=== PATIENT | female | born 1955 | race Caucasian/White ===

== ENCOUNTER 2020-05-07 14:06 | Outpatient (CLI) | payer SELFPAY ==
--- NOTE | 2020-05-07 14:35 | XR_ITS ---
WS: [id number] Right elbow, 2 views, 05/07/2020 Clinical Data: D17.21 - Benign lipomatous neoplasm of skin and subcutaneous tissue of right arm Comparison: None. Findings: No fractures or dislocations are seen. The radial head is normal. The soft tissues are unremarkable. A definite lipoma is not identified. Usually lipomas will have a lower density compared with the subc utaneous tissue. XR/XR elbow RT 2V [id number] Impression: Negative right elbow.
== END 2020-05-07 14:07 | disposition home or self-care (01) ==
LOC: RADWPI 14:10
PROVIDERS: PCP Family Medicine; Visit Provider Surgery
DX: D17.21 Benign lipomatous neoplasm of skin and subcutaneous tissue of right arm (principal)
CPT/HCPCS: 73070

== ENCOUNTER 2020-05-23 01:41 | Emergency (ER) | payer SELFPAY ==
[2020-05-23 01:45] VITALS: BP 127/73; PULSE 71; RESP 17; TEMP 36.7; O2SAT 93; BMI 31.6
--- NOTE | 2020-05-23 01:51 | XRR_ITS ---
PROCEDURE INFORMATION: Exam: XR Chest, 2 Views Exam date and time: 05/23/2020 1:58 AM Age: 65 years old Clinical indication: Chest pain; Patient HX: Fall four days ago. C/O continued left chest and rib pain. ; Additional info: Fall/injury TECHNIQUE: Imaging protocol: XR of the chest Views: 2 views. COMPARISON: CR Chest 1 [place] [id number] 04/09/2018 11:40 AM FINDINGS: Lungs: Unremarkable. No consolidation. Pleural space: Unremarkable. No pleural effusion. No pneumothorax. Heart/Mediastinum: Unremarkable. No cardiomegaly. Bones/joints: Degenerative changes are seen in the left shoulder. XR/XR chest 2V* [id number] IMPRESSION: No acute findings.
--- NOTE | 2020-05-23 02:01 | XRR_ITS ---
PROCEDURE INFORMATION: Exam: XR Left Ribs Exam date and time: 05/23/2020 2:05 AM Age: 65 years old Clinical indication: Chest wall pain; Patient HX: Fall four days ago. C/O continued left chest and rib pain. TECHNIQUE: Imaging protocol: XR Left ribs. Views: 2 views. COMPARISON: CR Ribs LEFT w PA Chest [id number] 04/03/2018 5:28 PM FINDINGS: Bones/joints: No fracture is seen. Dextroscoliosis of the thoracic spine is present. Soft tissues: Normal. XR/XR ribs LT 2V* [id number] IMPRESSION: No acute findings.
[2020-05-23 02:04] VITALS: BP 112/63; PULSE 68; RESP 18; O2SAT 112
--- NOTE | 2020-05-23 02:04 | ED_ITS ---
HPI - Chest Pain General: Chief Complaint: Chest Pain Stated Complaint: fell on Sun. lingering chest pain from fall Time Seen by Provider: 05/23/20 02:01 History of Present Illness: HPI narrative: Patient states she fell 4 days ago. Sustained a bruise to her left breast and had some pain. But she said that today she is needs refill hard and coughed and felt a tearing across her chest now she has pain left side of her chest with deep inspiration and palpation peer MD complaint: chest pain Onset (ago): hour(s) Timing of current episode: constant Prior episodes: No Context: history of DVT/PE Associated symptoms: Deny abdominal pain, dyspnea, fever(s), nausea or vomiting Review of Systems Const: Denies: fever(s), chills or body aches Eyes: Denies: change in vision or blurry vision ENMT: Denies: throat pain or nasal congestion Card: Reports: chest pain (Left upper chest pain with deep breath and after a cough today she said she); Denies: dyspnea on exertion Resp: Denies: dyspnea, productive cough or non-productive cough GI: Denies: abdominal pain, nausea or vomiting Musc: Denies: extremity pain Skin/Breast: Reports: other (Bruise to the left breast sustained from a fall the other day); Denies: rash Neuro: Denies: headache(s) Psych: Denies: anxiety or depression Filiberto/Lymph: Denies: easy bruising PFSH ED PFSH: Medical History History of MRSA infection Surgical History H/O: hysterectomy History of appendectomy History of right hip replacement Family History Other CAD (coronary artery disease) Diabetes Social History Smoking and tobacco status: current every day smoker cigarettes Packs smoked per day: 1 Alcohol intake: never Physical Exam Const: COMMON NORMALS: no acute distress, average body habitus and patient oriented x3 HENMT: COMMON NORMALS: normocephalic HEAD & SCALP: normal to inspection and normocephalic FACE & SINUS: normal facial exam Eye: COMMON NORMALS: conjunctivae normal GENERAL EYE: appearance normal, both eyes and all related structures CONJUNCTIVA: Yes conjunctivae normal Neck/C-Spine: COMMON NORMALS: no JVD Chest: CHEST: Yes localized rib tenderness with anteroposterior compression (Left side left breast tail medial aspect shows deep bruising) Location: 4th rib and 5th rib Resp: COMMON NORMALS: normal respiratory effort and clear to auscultation bilaterally AUSCULTATION: clear to auscultation bilaterally Cardio: COMMON NORMALS: no JVD, regular rate and regular rhythm RATE: regular rate RHYTHM: regular rhythm GI: COMMON NORMALS: Normal to inspection, nondistended, normoactive bowel sounds present Extremity: COMMON NORMALS: normal to inspection and full ROM Neuro: COMMON NORMALS: patient oriented x3 Course Vital Signs: Vital signs: Vital Signs Temperature 98.0 F 05/23/20 01:45 Pulse Rate 68 05/23/20 02:04 Respiratory Rate 18 05/23/20 02:04 Blood Pressure 112/63 05/23/20 02:04 Pulse Oximetry 112 H 05/23/20 02:04 MDM - Chest Pain MDM Narrative: Medical decision making narrative: Discussed case with Dr. Chandra. Patient follow-up with chest pain does not get better follow-up Dr. Abernathy of follow-up here. Discharge Plan Discharge Patient Disposition: Home Clinical Impression: Rib pain on left side Condition: Stable Prescriptions: New hydrocodone-acetaminophen 5-325 mg tablet 1 tab PO TID PRN (Reason: pain) Qty: 10 RF: 0 No Action albuterol sulfate [ProAir HFA] 90 mcg/actuation HFA aerosol inhaler 2 puff inhalation QID PRN (Reason: shortness of breath or wheezing) Qty: 8.5 RF: 0 Discharge Orders: Discharge ED (Routine); Ordered 05/23/20 Ordered By: Lencho Ellis Referrals: Karen Abernathy DO [Primary Care Provider] - Discharge Diet: Usual diet Discharge Activity: Increase activity as tolerated Patient Instructions: Contusion in Adults (ED) Activity Restrictions/Additional Instructions: Follow-up with medical provider as directed. Take medications as prescribed. Return to the ER or your medical provider if condition worsens. Please read and understand discharge instructions. If any questions ask please. Can apply ice to the area Coding Level of Care Code ED Building Manager for g Fwd Exam Comprehensive
[2020-05-23] MEDS: HYDROcodone-acetaminophen 7.5-325 mg Tablet 1 TAB PO (03:42)
[2020-05-23 03:45] VITALS: PULSE 62; O2SAT 90
== END 2020-05-23 03:50 | disposition home or self-care (01) ==
PROVIDERS: Emergency Provider Nurse Practitioner Family; PCP Family Medicine
DX: R07.81 Pleurodynia (principal); F17.210 Nicotine dependence, cigarettes, uncomplicated
CPT/HCPCS: 12345; 71046; 71100; 99282; 99283

== ENCOUNTER → 2020-07-26 17:31 | Outpatient (BNVA) | payer SELFPAY | PROVIDERS: PCP Family Medicine; Visit Provider Nurse Practitioner Family | DX: S82.831A Other fracture of upper and lower end of right fibula, initial encounter for closed fracture (principal); W00.0XXA Fall on same level due to ice and snow, initial encounter; Z68.31 Body mass index [BMI] 31.0-31.9, adult | CPT/HCPCS: 73562 ==

== ENCOUNTER → 2020-07-28 11:59 | Outpatient (BNVA) | payer SELFPAY | PROVIDERS: PCP Family Medicine; Visit Provider Orthopaedic Surgery | DX: M25.571 Pain in right ankle and joints of right foot (principal) | CPT/HCPCS: 73610 ==

== ENCOUNTER 2020-07-28 14:38 | Outpatient (CLI) | payer SELFPAY | END 2020-07-28 14:39 | disposition home or self-care (01) | LOC: SPT 14:38 | PROVIDERS: PCP Family Medicine; Visit Provider Orthopaedic Surgery | DX: Z46.89 Encounter for fitting and adjustment of other specified devices (principal); S93.401D Sprain of unspecified ligament of right ankle, subsequent encounter; X58.XXXD Exposure to other specified factors, subsequent encounter | CPT/HCPCS: L4361 ==

== ENCOUNTER → 2020-08-18 12:59 | Outpatient (BNVA) | payer SELFPAY | PROVIDERS: PCP Family Medicine; Visit Provider Orthopaedic Surgery | DX: S82.401A Unspecified fracture of shaft of right fibula, initial encounter for closed fracture (principal); M25.571 Pain in right ankle and joints of right foot; X58.XXXA Exposure to other specified factors, initial encounter | CPT/HCPCS: 73590 ==

== ENCOUNTER → 2020-09-09 13:02 | Outpatient (BNVA) | payer SELFPAY | PROVIDERS: PCP Family Medicine; Visit Provider Orthopaedic Surgery | DX: S82.401D Unspecified fracture of shaft of right fibula, subsequent encounter for closed fracture with routine healing; W00.0XXD Fall on same level due to ice and snow, subsequent encounter; M25.571 Pain in right ankle and joints of right foot; Z48.89 Encounter for other specified surgical aftercare | CPT/HCPCS: 73590 ==

== ENCOUNTER → 2021-09-30 12:05 | Outpatient (BNVA) | payer MEDICARE, SELFPAY | PROVIDERS: PCP Family Medicine; Visit Provider Family Medicine | DX: R00.2 Palpitations (principal); Z13.6 Encounter for screening for cardiovascular disorders | CPT/HCPCS: 80053; 80061; 84443; 85025 ==

== ENCOUNTER → 2021-10-25 11:09 | Outpatient (BNVA) | payer MEDICARE, SELFPAY | PROVIDERS: PCP Family Medicine; Visit Provider Internal Medicine Cardiovascular Disease | DX: R00.2 Palpitations (principal); I49.1 Atrial premature depolarization | CPT/HCPCS: 93242 ==

== ENCOUNTER 2021-11-12 13:14 | Outpatient (CLI) | payer MEDICARE, SELFPAY ==
--- NOTE | 2021-11-12 13:43 | MM_ITS ---
WS: [id number] BILATERAL 3D TOMOSYNTHESIS DIGITAL SCREENING MAMMOGRAPHY WITH CAD CLINICAL INFORMATION: screening mammogram HISTORY: Screening mammogram. No current complaints. COMPARISON: Outside studies and March 28, 2013 TECHNIQUE: Bilateral CC and MLO views. FINDINGS: Scattered fibroglandular densities bilaterally. No suspicious focal mass, asymmetry, calcifications, or architectural distortion. No evidence of malignancy. MM/[place] [id number] IMPRESSION: BI-RADS: 1-Negative FOLLOW UP: 1 Year Follow-up Recommend return to annual screening mammography.
== END 2021-11-12 13:15 | disposition home or self-care (01) ==
LOC: RAD 13:16
PROVIDERS: PCP Family Medicine; Visit Provider Family Medicine
DX: Z12.31 Encounter for screening mammogram for malignant neoplasm of breast (principal)
CPT/HCPCS: 77063; 77067

== ENCOUNTER 2021-12-29 13:54 | Outpatient (CLI) | payer MEDICARE, SELFPAY ==
--- NOTE | 2021-12-29 14:10 | XR_ITS ---
WS: [id number] DEXA (DUAL ENERGY X-RAY ABSORPTIOMETRY) Bone mineral density was performed using a [employer] machine. HISTORY: post-menopausal COMPARISON: None available. Lumbar spine BMD (L1-L4): 1.002 g/cm2 T score: -1.5 Z score: -0.7 Total hip BMD: Left: 0.847 (g/cm2). T score: -1.3 Z score: -0.6 Left forearm BMD: 0.850 g/cm2. T score: -0.3 Z score: 1.1 10 year probability of a major osteoporotic fracture is 14.8%. Osteopenia in the lumbar spine and LEFT hip. Normal bone mineral density LEFT forearm. XR/XR DEXA axial skeleton* [id number] IMPRESSION: OSTEOPENIA based upon the WHO classification for females.
== END 2021-12-29 13:55 | disposition home or self-care (01) ==
LOC: RAD 13:58
PROVIDERS: PCP Family Medicine; Visit Provider Family Medicine
DX: Z78.0 Asymptomatic menopausal state (principal); M85.80 Other specified disorders of bone density and structure, unspecified site
CPT/HCPCS: 77080

== ENCOUNTER → 2022-03-14 13:23 | Outpatient (BNVA) | payer MEDICARE, SELFPAY | PROVIDERS: PCP Family Medicine; Visit Provider Internal Medicine Cardiovascular Disease | DX: R00.2 Palpitations (principal); I49.1 Atrial premature depolarization; F17.219 Nicotine dependence, cigarettes, with unspecified nicotine-induced disorders | CPT/HCPCS: 99203 ==

== ENCOUNTER → 2022-04-27 10:55 | Outpatient (BNVA) | payer MEDICARE, SELFPAY | PROVIDERS: PCP Family Medicine; Visit Provider Nurse Practitioner Family | DX: M17.0 Bilateral primary osteoarthritis of knee (principal) | CPT/HCPCS: 73560; 73565; 99204 ==

== ENCOUNTER 2022-05-05 14:26 | Outpatient (RCR) | payer MEDICARE, SELFPAY | END 2022-06-04 23:59 | disposition home or self-care (01) | LOC: SPT 14:26 | PROVIDERS: PCP Family Medicine; Visit Provider Nurse Practitioner Family | DX: M25.561 Pain in right knee (principal) | CPT/HCPCS: 97161 ==

== ENCOUNTER → 2022-12-13 14:22 | Outpatient (BNVA) | payer MEDICARE, SELFPAY | PROVIDERS: PCP Family Medicine; Visit Provider Internal Medicine Cardiovascular Disease | DX: R00.2 Palpitations (principal); I49.1 Atrial premature depolarization; F17.219 Nicotine dependence, cigarettes, with unspecified nicotine-induced disorders; Z79.82 Long term (current) use of aspirin | CPT/HCPCS: 99213 ==

== ENCOUNTER → 2023-02-23 14:05 | Outpatient (BNVA) | payer MEDICARE, SELFPAY | PROVIDERS: PCP Family Medicine; Visit Provider Family Medicine | DX: Z13.6 Encounter for screening for cardiovascular disorders (principal); R00.2 Palpitations; Z11.59 Encounter for screening for other viral diseases; J44.9 Chronic obstructive pulmonary disease, unspecified; Z00.00 Encounter for general adult medical examination without abnormal findings; F17.219 Nicotine dependence, cigarettes, with unspecified nicotine-induced disorders; Z12.31 Encounter for screening mammogram for malignant neoplasm of breast; Z12.11 Encounter for screening for malignant neoplasm of colon; J43.1 Panlobular emphysema | CPT/HCPCS: 80053; 80061; 84443; 85025; 86803 ==

== ENCOUNTER 2023-03-10 14:21 | Outpatient (CLI) | payer MEDICARE, SELFPAY ==
--- NOTE | 2023-03-10 14:41 | MM_ITS ---
WS: [id number] BILATERAL 3D TOMOSYNTHESIS DIGITAL SCREENING MAMMOGRAPHY WITH CAD CLINICAL INFORMATION: screening HISTORY: Screening mammogram. No current complaints. COMPARISON: 2021 TECHNIQUE: Bilateral CC and MLO views. FINDINGS: Scattered fibroglandular densities bilaterally. No suspicious focal mass, asymmetry, calcifications, or architectural distortion. No evidence of malignancy. Incidental punctate calcifications LEFT breas t IMPRESSION: MM/[place] [id number] BI-RADS: 2-Benign FOLLOW UP: 1 Year Follow-up Recommend return to annual screening mammography.
== END 2023-03-10 14:22 | disposition home or self-care (01) ==
LOC: RAD 14:22
PROVIDERS: PCP Family Medicine; Visit Provider Family Medicine
DX: Z12.31 Encounter for screening mammogram for malignant neoplasm of breast (principal)
CPT/HCPCS: 77063; 77067

== ENCOUNTER 2023-05-05 16:32 | Observation (INO) | payer MEDICARE, SELFPAY ==
[2023-05-05 16:36] VITALS: BP 174/75; PULSE 75; RESP 20; TEMP 36.9; O2SAT 81; BMI 33.3
[2023-05-05 16:44] VITALS: O2SAT 91
--- NOTE | 2023-05-05 16:55 | XRR_ITS ---
PROCEDURE INFORMATION: Exam: XR Chest Exam date and time: 05/05/2023 6:38 PM Age: 68 years old Clinical indication: Dyspnea; Patient HX: Hypoxia; Copd; SOB; Smoker x 50yr-recently quit TECHNIQUE: Imaging protocol: Radiologic exam of the chest. Views: 1 view. COMPARISON: CR XR chest 2V* [id number] 05/23/2020 2:31 AM FINDINGS: Lungs: Interval development of patchy atelectasis versus pneumonia in the left lingula and right and left lower lobes. Pleural spaces: No pleural effusion. No pneumothorax. Heart/Mediastinum: Stable mild enlargement of the cardiac silhouette. Mediastinal contours are unremarkable. Vasculature: Stable vascular calcifications in the aorta. Bones/joints: Unremarkable for age. XR/XR chest 1V portable [id number] IMPRESSION: 1. Interval development of patchy atelectasis versus pneumonia in the left lingula and right and left lower lobes. Recommend followup chest imaging to insure resolution of these findings. 2. Incidental/nonacute findings are listed in the report.
[2023-05-05 17:43] LABS: Basophils # 0.1 10^3/uL (0.0-0.1); Eosinophils # 0.4 10^3/uL (0.0-0.8); Eosinophils % 5.2 %; Hematocrit 55.5 % (36-47); Lymphocytes # 2.1 10^3/uL (0.8-4.8); Lymphocytes % 25.8 %; Mean Corpuscular HGB Conc 32.6 g/dL (30-55); Mean Corpuscular Hemoglobin 34.3 pg (27-33); Mean Corpuscular Volume 105.1 fl (85-98); Mean Platelet Volume 9.7 fL (7.4-10.4); Monocytes # 0.8 10^3/uL (0.2-0.9); Monocytes % 9.3 %; Neutrophils # 4.72 10^3/uL (1.8-7.7); Neutrophils % 58.3 %; Nucleated Red Blood Cells % 0 %; Platelet Count 159 10^3/cmm (157-399); Red Blood Count 5.28 10^6/uL (3.85-5.65); Red Cell Distribution Width 14.8 % (12.1-15.1); White Blood Count 8.09 10^3/uL (3.29-11.43)
[2023-05-05 18:10] LABS: Alanine Aminotransferase 18 U/L (0-33); Albumin Level 3.9 g/dL (3.5-5.2); Alkaline Phosphatase 82 U/L (35-105); Anion Gap 13.6 (5-19); Aspartate Amino Transferase 20 U/L (0-32); Blood Urea Nitrogen 17 mg/dL (8-23); Calcium 9.3 mg/dL (8.5-10.5); Carbon Dioxide 32 mmol/L (22-29); Chloride 99 mmol/L (98-107); Glomerular Filtration Rate 55.3 mL/min (90-130); Glucose 106 mg/dL (65-115); Magnesium 2.1 mg/dL (1.7-2.3); Osmolality Calculated 292 mOsm/kg (285-295); Potassium 4.6 mmol/L (3.5-5.1); Sodium 140 mmol/L (136-145); Total Bilirubin 0.3 mg/dL (0.15-1.2); Total Protein 6.9 g/dL (6.6-8.7)
--- NOTE | 2023-05-05 18:51 | ED_ITS ---
Documented by User: MIGUEL Kee 05/06/23 01:25 HPI - Altered Mental Status 2 General: Chief Complaint: Altered Mental Status Stated Complaint: headache, weakness Time Seen by Provider: 05/05/23 18:40 History of Present Illness: Patient is a 68-year-old female with a past medical history significant for COPD and Intermittent PACs who presents to the emergency department with a chief complaint of shortness of breath, headaches, and difficulties concentrating. Patient reports that her symptoms started approximately 4 days ago and has continued to progress since onset. Patient states that she has also had intermittent palpitations, however, the patient does have a known history of intermittent PACs. Denies chest pain at this time. Admits to a nonproductive cough and associated nasal congestion with clear rhinorrhea. Patient states that she was recently placed on Spiriva approximately 23 days ago and is unsure if this is related to her symptoms or not. Patient states that she has had a headache, however, when she was placed on oxygen in the emergency department her headache had resolved. She currently denies a headache at this time. Admits to intermittent lightheadedness and dizziness. She denies fevers, abdominal pain, constipation, diarrhea, dysuria, hematuria, numbness, tingling, visual disturbances, or any other associated symptoms. Admits to smoking approximately 1 pack of cigarettes a day. She denies drinking or other recreational drug use. No other complaints at this time. Review of Systems 2 General: Reports: 10 or more systems reviewed and unremarkable except in HPI and below Const: Reports: fatigue; Denies: fever(s), chills or change in appetite Eyes: Denies: change in vision or blurry vision ENMT: Reports: hoarseness, nasal discharge and nasal congestion; Denies: throat pain, ear or mastoid pain or ear discharge Card: Reports: palpitations and lightheadedness; Denies: chest pain, syncope or pre-syncope Resp: Reports: dyspnea, non-productive cough and wheezing; Denies: productive cough GI: Denies: abdominal pain, nausea, vomiting, diarrhea or constipation : Denies: difficulty voiding, dysuria, urinary frequency or hematuria Musc: Denies: neck pain or back pain Skin/Breast: Denies: rash Neuro: Reports: headache(s), dizziness and confusion (Admits to difficulties concentrate) [facility] ED 2 PFSH: Medical History Salivary gland disturbance Surgery Scalp avulsion History of pulmonary embolism History of MRSA infection Surgical History History of right hip replacement H/O: hysterectomy History of appendectomy Family History Other CAD (coronary artery disease) Diabetes Social History Smoking and tobacco/nicotine status: current every day tobacco/nicotine user cigarettes Packs smoked per day: 1 [ Other cigarette details: <3 packs per weeks] Alcohol intake: never Substance/Drug Use: never Physical Exam 2 Const: COMMON NORMALS: no acute distress, patient oriented x3 and alert O THER: Patient is requiring 4 L of nasal cannula oxygen to stay above 90%. HENMT: COMMON NORMALS: normocephalic, atraumatic, moist oral mucous membranes and oropharynx normal HEAD & SCALP: normocephalic and atraumatic Eye: COMMON NORMALS: Equal, round and reactive pupils present, EOMs intact bilaterally, conjunctivae normal and no scleral icterus CONJUNCTIVA: Yes conjunctivae normal PUPIL: Yes Equal, round and reactive pupils present Neck/C-Spine: COMMON NORMALS: full ROM, no lymphadenopathy, supple, no meningeal signs and no JVD Chest: COMMONS NORMALS: normal inspection of the chest Resp: OTHER: Inspiratory and expiratory wheezes heard in the bilateral upper and lower lung thompson. Cardio: COMMON NORMALS: no JVD, regular rate, regular rhythm, No gallops present (Cardio), No clicks present (Cardio), No murmurs present (Cardio) and No rub (Cardio) RATE: regular rate RHYTHM: regular rhythm OTHER: Mild 1+ pitting edema bilaterally. GI: COMMON NORMALS: Normal to inspection, nondistended, normoactive bowel sounds present, Soft to palpation and non-tender PALPATION: Yes Soft to palpation Neuro: COMMON NORMALS: patient oriented x3 SENSORIUM/ORIENTATION: Yes alert MENINGEAL SIGNS: Yes no meningeal signs OTHER: Patient is alert and oriented x 4. No focal neurological deficits noted on examination. Sensation intact in the bilateral upper and lower extremities. No meningeal signs noted. Course 2 Vital Signs: Vital signs: Vital Signs Temperature 98 F 05/06/23 16:24 Pulse Rate 60 05/06/23 16:24 Respiratory Rate 18 05/06/23 16:24 Blood Pressure 112/62 05/06/23 16:24 Pulse Oximetry 92 05/06/23 16:24 Oxygen Delivery Me thod Nasal Cannula 05/06/23 16:24 Oxygen Flow Rate 4 05/06/23 08:00 Fraction of Inspir ed Oxygen 45 05/06/23 02:45 MDM - Altered Mental Status Medical Decision Making Patient is a 68-year-old female with a past medical history significant for COPD and Intermittent PACs who presents to the emergency department with a chief complaint of shortness of breath, headaches, and difficulties concentrating. On physical examination patient is nontoxic and in no acute distress. Patient was hypoxic with a oxygen saturation of 81% on room air. Patient required 4 L of nasal cannula oxygen to remain above 90%. Patient does not wear nasal cannula oxygen at home. CBC showed no evidence of anemia or leukocytosis. ABG showed a pCO2 of 59.9, a PO2 of 68.1, a bicarb of 33, base excess of 4.9. CMP showed a carbon dioxide of 32, a creatinine of 1, and a GFR of 55.3. Initial troponin was 10. 2-hour troponin was 10.61. BNP was 147. Urinalysis showed no evidence of urinary tract infection. Influenza and COVID-19 negative. EKG sinus bradycardia. Chest x-ray showed Interval development of patchy atelectasis versus pneumonia in the left lingula and right and left lower lobes. Recommend followup chest imaging to insure resolution of these findings. CTA of the chest showed No evidence for aortic aneurysm or aortic dissection. No evidence for pulmonary embolism. Mucous plugging in multiple left lower lobe segmental bronchi. Interval development of a left upper lobe nodule with an average measurement of 5 mm. For patients at low risk (minimal or absent history of smoking and of other known risk factors), no routine follow-up is indicated. nFor patients at high risk (history of smoking or of other known risk factors), consider optional CT Chest at 12 months. (Reference: [place]) Stable left lower lobe nodule with an average measurement of 5 mm. Serpiginous area of sclerosis in the left humeral head suspicious for avascular necrosis. Wheezes noted in the bilateral upper and lower lung thompson to initial auscultation. Patient was given a DuoNeb breathing treatment and 125 mg of IV Solu-Medrol. Improvement of wheezes was noted to reauscultation after medication administration. Patient stated resolution of headache after administration of oxygen. No meningeal signs noted on examination. I do not think meningitis or encephalitis is likely at this time. Given the patient's new oxygen demand I will admit to the floor for further management. I spoke with Dr. Morales, the hospitalist on-call, who accepted the patient to a medical telemetry floor. Patient stated understanding of all instructions was agreeable to admission. Patient was admitted to the floor in stable condition. Differential diagnosis includes but is not limited to COPD exacerbation, acute coronary syndrome, pulmonary embolism, congestive heart failure, hypoxemia, meningitis, encephalitis Lab Data 05/06/23 04:57 05/06/23 04:57 Radiology Impressions Chest X-Ray 05/05/23 16:55 IMPRESSION: 1. Interval development of patchy atelectasis versus pneumonia in the left lingula and right and left lower lobes. Recommend followup chest imaging to insure resolution of these findings. 2. Incidental/nonacute findings are listed in the report. Chest CTA 05/05/23 20:04 IMPRESSION: 1. No evidence for aortic aneurysm or aortic dissection. 2. No evidence for pulmonary embolism. 3. Mucous plugging in multiple left lower lobe segmental bronchi. 4. Interval development of a left upper lobe nodule with an average measurement of 5 mm. For patients at low risk (minimal or absent history of smoking and of other known risk factors), no routine follow-up is indicated. For patients at high risk (history of smoking or of other known risk factors), consider optional CT Chest at 12 months. (Reference: [place]) 5. Stable left lower lobe nodule with an average measurement of 5 mm. 6. Serpiginous area of sclerosis in the left humeral head suspicious for avascular necrosis. 7. Incidental/nonacute findings are listed in the report. REFERENCES: [place] Greenfield, et al. Guidelines for Management of Incidental Pulmonary Nodules Detected on CT Images: From the Fleischner Society 2017. Radiology. 2017;284(1):228-243. Laboratory Results WBC 7.28 10^3/uL (3.29-11.43) 05/06/23 04:57 RBC 5.47 10^6/uL (3.85-5.65) 05/06/23 04:57 Hgb 18.90 g/dL (11.27-16.99) H 05/06/23 04:57 Hct 57.1 % (36-47) H 05/06/23 04:57 MCV 104.4 fl (85-98) H 05/06/23 04:57 MCH 34.6 pg (27-33) H 05/06/23 04:57 MCHC 33.1 g/dL (30-55) 05/06/23 04:57 RDW 14.6 % (12.1-15.1) 05/06/23 04:57 Plt Count 193 10^3/cmm (157-399) 05/06/23 04:57 MPV 10.1 fL (7.4-10.4) 05/06/23 04:57 Neut % (Auto) 85.8 % 05/06/23 04:57 Lymph % (Auto) 12.6 % 05/06/23 04:57 Sabine % (Auto) 0.5 % 05/06/23 04:57 Eos % (Auto) 0.0 % 05/06/23 04:57 Baso % (Auto) 0.3 % 05/06/23 04:57 Neut # (Auto) 6.24 10^3/uL (1.8-7.7) 05/06/23 04:57 Lymph # (Auto) 0.9 10^3/uL (0.8-4.8) 05/06/23 04:57 Sabine # (Auto) 0.0 10^3/uL (0.2-0.9) L 05/06/23 04:57 Eos # (Auto) 0.0 10^3/uL (0.0-0.8) 05/06/23 04:57 Baso # (Auto) 0.0 10^3/uL (0.0-0.1) 05/06/23 04:57 Nucleated RBC % (auto) 0 % 05/06/23 04:57 Nucleated RBCs # 0.0 /100WBC 05/06/23 04:57 Specimen Type Arterial 05/05/23 20:57 Sample Site Brachial, right 05/05/23 20:57 ABG pH 7.35 (7.35-7.45) 05/05/23 20:57 ABG pCO2 59.9 mmHg (35-45) H 05/05/23 20:57 ABG pO2 68.1 mmHg (80.0-100.0) L 05/05/23 20:57 ABG HCO3 33.0 mmol/L (22-26) H 05/05/23 20:57 ABG O2 Saturation 95.5 05/05/23 20:57 ABG Base Excess 4.9 mmol/L (-2.0-2.0) H 05/05/23 20:57 Juan Test N/a 05/05/23 20:57 A-a O2 Gradient 1.1 mmHg (5-10) L 05/05/23 20:57 Hematocrit 54.9 % (37-47) H 05/05/23 20:57 Hgb O2 Saturation 85.4 % (95-100) L 05/05/23 20:57 Carboxyhemoglobin 10.5 %THgb (0.4-20.1) 05/05/23 20:57 Methemoglobin 0.1 % (0.4-1.5) L 05/05/23 20:57 Total Hemoglobin 17.9 g/dL (12-16) H 05/05/23 20:57 Sodium 138.0 mmol/L (131-143) 05/05/23 20:57 Potassium 4.6 mmol/L (3.5-5.0) 05/05/23 20:57 Glucose 96.0 mg/dL (70-115) 05/05/23 20:57 Ionized Calcium 1.2 mmol/L (1.1-1.4) 05/05/23 20:57 O2 Delivery Device Nc 05/05/23 20:57 O2 Liters/Min 4.0 % 05/05/23 20:57 Marketing Automation Specialist ID Anonymous 05/05/23 20:57 Sodium 140 mmol/L (136-145) 05/06/23 04:57 Potassium 4.4 mmol/L (3.5-5.1) 05/06/23 04:57 Chloride 99 mmol/L (98-107) 05/06/23 04:57 Carbon Dioxide 28 mmol/L (22-29) 05/06/23 04:57 Anion Gap 17.4 (5-19) 05/06/23 04:57 BUN 15 mg/dL (8-23) 05/06/23 04:57 Creatinine 0.8 mg/dL (0.5-0.9) 05/06/23 04:57 GFR Calculation 71.5 mL/min (90-130) L 05/06/23 04:57 Glucose 175 mg/dL (65-115) H 05/06/23 04:57 Calculated Osmolality 295 mOsm/kg (285-295) 05/06/23 04:57 Calcium 9.4 mg/dL (8.5-10.5) 05/06/23 04:57 Phosphorus 3.1 mg/dL (2.5-4.5) 05/06/23 04:57 Magnesium 2.2 mg/dL (1.7-2.3) 05/06/23 04:57 Total Bilirubin 0.3 mg/dL (0.15-1.2) 05/05/23 17:26 AST 20 U/L (0-32) 05/05/23 17:26 ALT 18 U/L (0-33) 05/05/23 17:26 Alkaline Phosphatase 82 U/L (35-105) 05/05/23 17:26 Troponin T Baseline 10 ng/L (0-10) 05/05/23 17:26 Troponin T 120 Minute 10.61 ng/L (0-10) H 05/05/23 20:28 Delta Troponin T 0.61 ABS# (0-10) 05/05/23 20:28 Troponin T Hi Sens 6Hr 8.44 ng/L (0-10) 05/06/23 00:31 Troponin T Hi Sens 6Hr Delta -1.56 ng/L (0-12) L 05/06/23 00:31 C-Reactive Protein 3.2 mg/L (0.0-4.9) 05/06/23 04:57 NT-Pro-B Natriuret Pep 150 pg/mL (0-125) H 05/06/23 04:57 Total Protein 6.9 g/dL (6.6-8.7) 05/05/23 17:26 Albumin 3.9 g/dL (3.5-5.2) 05/05/23 17:26 Globulin 3.0 g/dL (1.3-4.6) 05/05/23 17:26 Procalcitonin 0.03 ng/mL (0-0.5) 05/05/23 20:28 TSH 1.67 uIU/mL (0.27-4.20) 05/06/23 00:31 Urine Color Yellow (Yellow) 05/05/23 20:53 Urine Appearance Clear (CLEAR) 05/05/23 20:53 Urine pH 6 (5-7) 05/05/23 20:53 Ur Specific [place] 1.005 (1.005-1.030) 05/05/23 20:53 Urine Protein Neg (Negative) 05/05/23 20:53 Urine Glucose (UA) Norm (Normal) 05/05/23 20:53 Urine Ketones Negative (Negative) 05/05/23 20:53 Urine Blood Neg (Negative) 05/05/23 20:53 Urine Nitrate Negative (Negative) 05/05/23 20:53 Urine Bilirubin Neg (Negative) 05/05/23 20:53 Urine Urobilinogen Neg mg/dL (Negative) 05/05/23 20:53 Ur Leukocyte Esterase Negative (Negative) 05/05/23 20:53 Influenza Type A Ag negative (Negative) 05/05/23 19:40 Influenza Type B Ag negative (Negative) 05/05/23 19:40 SARS-CoV-2 Ag (Rapid) negative (Negative) 05/05/23 19:40 All radiology interpretation(s) finalized by discharge Discharge Plan Discharge Patient Disposition: Admitted As Inpatient Admit Provider: Yunior Morales Clinical Impression: Acute exacerbation of chronic obstructive pulmonary disease Condition: Stable Coding Level of Care Code ED Geography Department Chair for Chg Fwd Documented by User: Sahil Franco DO 05/06/23 17:25 HPI - Altered Mental Status 2 General: Chief Complaint: Altered Mental Status Stated Complaint: headache, weakness Time Seen by Provider: 05/05/23 18:40 PFSH ED 2 PFSH: Medical History Salivary gland disturbance Surgery Scalp avulsion History of pulmonary embolism History of MRSA infection Surgical History History of right hip replacement H/O: hysterectomy History of appendectomy Family History Other CAD (coronary artery disease) Diabetes Social History Smoking and tobacco/nicotine status: current every day tobacco/nicotine user cigarettes Packs smoked per day: 1 [ Other cigarette details: <3 packs per weeks] Alcohol intake: never Substance/Drug Use: never Course 2 Vital Signs: Vital signs: Vital Signs Temperature 98 F 05/06/23 16:24 Pulse Rate 60 05/06/23 16:24 Respiratory Rate 18 05/06/23 16:24 Blood Pressure 112/62 05/06/23 16:24 Pulse Oximetry 92 05/06/23 16:24 Oxygen Delivery Me thod Nasal Cannula 05/06/23 16:24 Oxygen Flow Rate 4 05/06/23 08:00 Fraction of Inspir ed Oxygen 45 05/06/23 02:45 MDM - Altered Mental Status Medical Decision Making Patient is a 68-year-old female with a past medical history significant for COPD and Intermittent PACs who presents to the emergency department with a chief complaint of shortness of breath, headaches, and difficulties concentrating. On physical examination patient is nontoxic and in no acute distress. Patient was hypoxic with a oxygen saturation of 81% on room air. Patient required 4 L of nasal cannula oxygen to remain above 90%. Patient does not wear nasal cannula oxygen at home. CBC showed no evidence of anemia or leukocytosis. ABG showed a pCO2 of 59.9, a PO2 of 68.1, a bicarb of 33, base excess of 4.9. CMP showed a carbon dioxide of 32, a creatinine of 1, and a GFR of 55.3. Initial troponin was 10. 2-hour troponin was 10.61. BNP was 147. Urinalysis showed no evidence of urinary tract infection. Influenza and COVID-19 negative. EKG sinus bradycardia. Chest x-ray showed Interval development of patchy atelectasis versus pneumonia in the left lingula and right and left lower lobes. Recommend followup chest imaging to insure resolution of these findings. CTA of the chest showed No evidence for aortic aneurysm or aortic dissection. No evidence for pulmonary embolism. Mucous plugging in multiple left lower lobe segmental bronchi. Interval development of a left upper lobe nodule with an average measurement of 5 mm. For patients at low risk (minimal or absent history of smoking and of other known risk factors), no routine follow-up is indicated. nFor patients at high risk (history of smoking or of other known risk factors), consider optional CT Chest at 12 months. (Reference: [place]) Stable left lower lobe nodule with an average measurement of 5 mm. Serpiginous area of sclerosis in the left humeral head suspicious for avascular necrosis. Wheezes noted in the bilateral upper and lower lung thompson to initial auscultation. Patient was given a DuoNeb breathing treatment and 125 mg of IV Solu-Medrol. Improvement of wheezes was noted to reauscultation after medication administration. Patient stated resolution of headache after administration of oxygen. No meningeal signs noted on examination. I do not think meningitis or encephalitis is likely at this time. Given the patient's new oxygen demand I will admit to the floor for further management. I spoke with Dr. Morales, the hospitalist on-call, who accepted the patient to a medical telemetry floor. Patient stated understanding of all instructions was agreeable to admission. Patient was admitted to the floor in stable condition. Differential diagnosis includes but is not limited to COPD exacerbation, acute coronary syndrome, pulmonary embolism, congestive heart failure, hypoxemia, meningitis, encephalitis This patient was originally seen by Mr. Jose F PA-C. I agree with his history, evaluation, and treatment. Lab Data 05/06/23 04:57 05/06/23 04:57 Radiology Impressions Chest X-Ray 05/05/23 16:55 IMPRESSION: 1. Interval development of patchy atelectasis versus pneumonia in the left lingula and right and left lower lobes. Recommend followup chest imaging to insure resolution of these findings. 2. Incidental/nonacute findings are listed in the report. Chest CTA 05/05/23 20:04 IMPRESSION: 1. No evidence for aortic aneurysm or aortic dissection. 2. No evidence for pulmonary embolism. 3. Mucous plugging in multiple left lower lobe segmental bronchi. 4. Interval development of a left upper lobe nodule with an average measurement of 5 mm. For patients at low risk (minimal or absent history of smoking and of other known risk factors), no routine follow-up is indicated. For patients at high risk (history of smoking or of other known risk factors), consider optional CT Chest at 12 months. (Reference: [place]) 5. Stable left lower lobe nodule with an average measurement of 5 mm. 6. Serpiginous area of sclerosis in the left humeral head suspicious for avascular necrosis. 7. Incidental/nonacute findings are listed in the report. REFERENCES: [place] Greenfield, et al. Guidelines for Management of Incidental Pulmonary Nodules Detected on CT Images: From the Fleischner Society 2017. Radiology. 2017;284(1):228-243. Laboratory Results WBC 7.28 10^3/uL (3.29-11.43) 05/06/23 04:57 RBC 5.47 10^6/uL (3.85-5.65) 05/06/23 04:57 Hgb 18.90 g/dL (11.27-16.99) H 05/06/23 04:57 Hct 57.1 % (36-47) H 05/06/23 04:57 MCV 104.4 fl (85-98) H 05/06/23 04:57 MCH 34.6 pg (27-33) H 05/06/23 04:57 MCHC 33.1 g/dL (30-55) 05/06/23 04:57 RDW 14.6 % (12.1-15.1) 05/06/23 04:57 Plt Count 193 10^3/cmm (157-399) 05/06/23 04:57 MPV 10.1 fL (7.4-10.4) 05/06/23 04:57 Neut % (Auto) 85.8 % 05/06/23 04:57 Lymph % (Auto) 12.6 % 05/06/23 04:57 Sabine % (Auto) 0.5 % 05/06/23 04:57 Eos % (Auto) 0.0 % 05/06/23 04:57 Baso % (Auto) 0.3 % 05/06/23 04:57 Neut # (Auto) 6.24 10^3/uL (1.8-7.7) 05/06/23 04:57 Lymph # (Auto) 0.9 10^3/uL (0.8-4.8) 05/06/23 04:57 Sabine # (Auto) 0.0 10^3/uL (0.2-0.9) L 05/06/23 04:57 Eos # (Auto) 0.0 10^3/uL (0.0-0.8) 05/06/23 04:57 Baso # (Auto) 0.0 10^3/uL (0.0-0.1) 05/06/23 04:57 Nucleated RBC % (auto) 0 % 05/06/23 04:57 Nucleated RBCs # 0.0 /100WBC 05/06/23 04:57 Specimen Type Arterial 05/05/23 20:57 Sample Site Brachial, right 05/05/23 20:57 ABG pH 7.35 (7.35-7.45) 05/05/23 20:57 ABG pCO2 59.9 mmHg (35-45) H 05/05/23 20:57 ABG pO2 68.1 mmHg (80.0-100.0) L 05/05/23 20:57 ABG HCO3 33.0 mmol/L (22-26) H 05/05/23 20:57 ABG O2 Saturation 95.5 05/05/23 20:57 ABG Base Excess 4.9 mmol/L (-2.0-2.0) H 05/05/23 20:57 Juan Test N/a 05/05/23 20:57 A-a O2 Gradient 1.1 mmHg (5-10) L 05/05/23 20:57 Hematocrit 54.9 % (37-47) H 05/05/23 20:57 Hgb O2 Saturation 85.4 % (95-100) L 05/05/23 20:57 Carboxyhemoglobin 10.5 %THgb (0.4-20.1) 05/05/23 20:57 Methemoglobin 0.1 % (0.4-1.5) L 05/05/23 20:57 Total Hemoglobin 17.9 g/dL (12-16) H 05/05/23 20:57 Sodium 138.0 mmol/L (131-143) 05/05/23 20:57 Potassium 4.6 mmol/L (3.5-5.0) 05/05/23 20:57 Glucose 96.0 mg/dL (70-115) 05/05/23 20:57 Ionized Calcium 1.2 mmol/L (1.1-1.4) 05/05/23 20:57 O2 Delivery Device Nc 05/05/23 20:57 O2 Liters/Min 4.0 % 05/05/23 20:57 Marketing Automation Specialist ID Anonymous 05/05/23 20:57 Sodium 140 mmol/L (136-145) 05/06/23 04:57 Potassium 4.4 mmol/L (3.5-5.1) 05/06/23 04:57 Chloride 99 mmol/L (98-107) 05/06/23 04:57 Carbon Dioxide 28 mmol/L (22-29) 05/06/23 04:57 Anion Gap 17.4 (5-19) 05/06/23 04:57 BUN 15 mg/dL (8-23) 05/06/23 04:57 Creatinine 0.8 mg/dL (0.5-0.9) 05/06/23 04:57 GFR Calculation 71.5 mL/min (90-130) L 05/06/23 04:57 Glucose 175 mg/dL (65-115) H 05/06/23 04:57 Calculated Osmolality 295 mOsm/kg (285-295) 05/06/23 04:57 Calcium 9.4 mg/dL (8.5-10.5) 05/06/23 04:57 Phosphorus 3.1 mg/dL (2.5-4.5) 05/06/23 04:57 Magnesium 2.2 mg/dL (1.7-2.3) 05/06/23 04:57 Total Bilirubin 0.3 mg/dL (0.15-1.2) 05/05/23 17:26 AST 20 U/L (0-32) 05/05/23 17:26 ALT 18 U/L (0-33) 05/05/23 17:26 Alkaline Phosphatase 82 U/L (35-105) 05/05/23 17:26 Troponin T Baseline 10 ng/L (0-10) 05/05/23 17:26 Troponin T 120 Minute 10.61 ng/L (0-10) H 05/05/23 20:28 Delta Troponin T 0.61 ABS# (0-10) 05/05/23 20:28 Troponin T Hi Sens 6Hr 8.44 ng/L (0-10) 05/06/23 00:31 Troponin T Hi Sens 6Hr Delta -1.56 ng/L (0-12) L 05/06/23 00:31 C-Reactive Protein 3.2 mg/L (0.0-4.9) 05/06/23 04:57 NT-Pro-B Natriuret Pep 150 pg/mL (0-125) H 05/06/23 04:57 Total Protein 6.9 g/dL (6.6-8.7) 05/05/23 17:26 Albumin 3.9 g/dL (3.5-5.2) 05/05/23 17:26 Globulin 3.0 g/dL (1.3-4.6) 05/05/23 17:26 Procalcitonin 0.03 ng/mL (0-0.5) 05/05/23 20:28 TSH 1.67 uIU/mL (0.27-4.20) 05/06/23 00:31 Urine Color Yellow (Yellow) 05/05/23 20:53 Urine Appearance Clear (CLEAR) 05/05/23 20:53 Urine pH 6 (5-7) 05/05/23 20:53 Ur Specific [place] 1.005 (1.005-1.030) 05/05/23 20:53 Urine Protein Neg (Negative) 05/05/23 20:53 Urine Glucose (UA) Norm (Normal) 05/05/23 20:53 Urine Ketones Negative (Negative) 05/05/23 20:53 Urine Blood Neg (Negative) 05/05/23 20:53 Urine Nitrate Negative (Negative) 05/05/23 20:53 Urine Bilirubin Neg (Negative) 05/05/23 20:53 Urine Urobilinogen Neg mg/dL (Negative) 05/05/23 20:53 Ur Leukocyte Esterase Negative (Negative) 05/05/23 20:53 Influenza Type A Ag negative (Negative) 05/05/23 19:40 Influenza Type B Ag negative (Negative) 05/05/23 19:40 SARS-CoV-2 Ag (Rapid) negative (Negative) 05/05/23 19:40 Discharge Plan Discharge Patient Disposition: Admitted As Inpatient Admit Provider: Yunior Morales Clinical Impression: Acute exacerbation of chronic obstructive pulmonary disease Condition: Stable Coding Level of Care Code ED Geography Department Chair for Ana Abraham
[2023-05-05 19:27] LABS: NT Pro B Type Natriuretic Pept 147 pg/mL (0-125)
--- NOTE | 2023-05-05 19:29 | ECG_ITS ---
[facility] Test Date: 2023-05-05 Pat Name: July Young Department: Room: Gender: Female [employer]: : 1955 Requested By: Mann Kohler Order Number: [id number] Harley MD: Madonna Portillo M.D. Measurements Intervals [place] Rate: 57 P: 83 GA: 197 QRS: -66 QRSD: 92 T: 72 QT: 417 QTc: 409 Interpretive Statements SINUS BRADYCARDIA POSSIBLE LEFT ATRIAL ENLARGEMENT [-0.1mV P-WAVE IN V1/V2] INDETERMINATE AXIS Compared to ECG 04/09/2018 11:57:46 Indeterminate axis now present Sinus rhythm no longer present Electronically Signed On 05-06-2023 6:09:24 DAIRY TECHNICIAN by Madonna Portillo M.D. [email or web address]
[2023-05-05] MEDS: methylPREDNISolone sod succ 125 mg/2 mL INJ IVP (20:02)
--- NOTE | 2023-05-05 20:04 | CTR_ITS ---
PROCEDURE INFORMATION: Exam: CTA Chest With Contrast Exam date and time: 05/05/2023 8:14 PM Age: 68 years old Clinical indication: Shortness of breath; Patient HX: Persistent hypoxia. ; Additional info: Hypoxia. Rule out pulmonary embolism TECHNIQUE: Imaging protocol: Computed tomographic angiography of the chest with contrast. Exam focused on the arteries. Sagittal and coronal reformatted images were created and reviewed. 3D rendering (Not supervised by radiologist): MIP and/or 3D reconstructed images were created by the technologist. Radiation optimization: All CT scans at this facility use at least one of these dose optimization techniques: automated exposure control; mA and/or kV adjustment per patient size (includes targeted exams where dose is matched to clinical indication); or iterative reconstruction. Contrast material: OMNI 350; Contrast volume: 84 ml; Contrast route: INTRAVENOUS (IV); REPORTING DATA: Count of CT and Cardiac NM exams in prior 12 months: This patient has received 0 known CTs and 0 known cardiac nuclear medicine studies in the 12 months prior to the current study. COMPARISON: CT angio chest PE protcl [id number] 04/09/2018 12:51 PM RADIATION DOSE METRICS: Total DLP (mGy-cm): 466.54 FINDINGS: Pulmonary arteries: No filling defects in the pulmonary arteries to suggest pulmonary embolism. Aorta: Stable mild atherosclerotic changes in the visualized arteries. No evidence for aortic aneurysm or aortic dissection. Lungs: Mucous plugging in multiple left lower lobe segmental bronchi. No focal consolidation. No pulmonary edema. Interval development of a left upper lobe nodule with an average measurement of 5 mm (series 6, image 143). Stable left lower lobe nodule with an average measurement of 5 mm (series 6, image 294). Linear atelectasis versus scarring in the left lingula. Pleural spaces: No pneumothorax. No pleural effusion. Heart: Stable moderate enlargement of the heart. Calcification of the aortic valve. Esophagus: The esophagus is unremarkable. Mediastinal space: No mediastinal hematoma. No pneumomediastinum. Lymph nodes: No lymphadenopathy. Liver: The visualized liver is unremarkable. Gallbladder and bile ducts: The visualized gallbladder is unremarkable. No dilatation of the visualized bile ducts. Pancreas: The visualized pancreas is unremarkable. No pancreatic ductal dilatation. Spleen: The spleen is unremarkable. Adrenal glands: The right and left adrenal glands are unremarkable. Kidneys and ureters: Stable simple cyst in the visualized right kidney measuring 1.7 cm. Stable scarring in the visualized left kidney. Bones/joints: Degenerative changes in the spine and shoulders. Mild scoliosis in the visualized spine. Bones are diffusely osteopenic. Serpiginous area of sclerosis in the left humeral head suspicious for avascular necrosis. Soft tissues: No acute abnormality in the extrathoracic soft tissues. CT/CT angio chest PE protcl [id number] IMPRESSION: 1. No evidence for aortic aneurysm or aortic dissection. 2. No evidence for pulmonary embolism. 3. Mucous plugging in multiple left lower lobe segmental bronchi. 4. Interval development of a left upper lobe nodule with an average measurement of 5 mm. For patients at low risk (minimal or absent history of smoking and of other known risk factors), no routine follow-up is indicated. For patients at high risk (history of smoking or of other known risk factors), consider optional CT Chest at 12 months. (Reference: [facility]) 5. Stable left lower lobe nodule with an average measurement of 5 mm. 6. Serpiginous area of sclerosis in the left humeral head suspicious for avascular necrosis. 7. Incidental/nonacute findings are listed in the report. REFERENCES: [facility] Greenfield et al. Guidelines for Management of Incidental Pulmonary Nodules Detected on CT Images: From the Fleischner Society 2017. Radiology. 2017;284(1):228-243.
[2023-05-05 20:06] LABS: Influenza A by IFA negative (Negative); Influenza B by IFA negative (Negative); SARS Covid-2 Antigen negative (Negative)
[2023-05-05] MEDS: iohexol 350 mg/mL 500 mL Btl (per mL) IV (20:18)
[2023-05-05 20:47] LABS: Troponin(5th) Baseline 10 ng/L (0-10)
[2023-05-05] MEDS: nicotine 7 mg Patch 1 PATCH TRANSDERMA (20:48)
[2023-05-05 20:55] VITALS: PULSE 57; RESP 17; O2SAT 91
[2023-05-05 20:55] LABS: Troponin 5 2HR 10.61 ng/L (0-10); Troponin 5 2HR Delta 0.61 ABS# (0-10)
[2023-05-05] MEDS: ipratropium-albuterol 3 mL Neb INHALATION (20:55)
[2023-05-05 21:03] VITALS: PULSE 61
[2023-05-05 21:06] LABS: Add Urine Microscopic? NO; Charge for UA Resulting for Rev
[2023-05-05 21:08] LABS: ABG PCO2 59.9 mmHg (35-45); ABG PH Result 7.35 (7.35-7.45); Alveolar-Arterial Oxygen Gradi 1.1 mmHg (5-10); Arterial Blood Gas Hematocrit 54.9 % (37-47); Base Excess ABG 4.9 mmol/L (-2.0-2.0); Blood Gas Operator Identificat Anonymous; Blood Gas Sample Site Brachial, right; Blood Gas Sample Type Arterial; Carboxyhemoglobin 10.5 %THgb (0.4-20.1); HGB O2 Sat 85.4 % (95-100); Ionized Calcium Level - ABG 1.2 mmol/L (1.1-1.4); Methemoglobin 0.1 % (0.4-1.5); Oxygen Device NC; Oxygen Saturation ABG 95.5; PO2 ABG 68.1 mmHg (80.0-100.0); Potassium Level - ABG 4.6 mmol/L (3.5-5.0); Total Hemoglobin 17.9 g/dL (12-16)
[2023-05-05 21:09] LABS: Protein Urine Neg (Negative); Specific Gravity, Urine 1.005 (1.005-1.030); Urine Appearance Clear (CLEAR); Urine Color Yellow (Yellow); pH Urine 6 (5-7)
[2023-05-05 21:10] LABS: Bilirubin Urine Neg (Negative); Blood Urine Neg (Negative); Glucose Urine UA Norm (Normal); Ketones Urine Negative (Negative); Leukocyte Esterase Urine Negative (Negative); Nitrate Urine Negative (Negative); Urobilinogen Urine Neg (Negative)
--- NOTE | 2023-05-05 22:26 | P.HP_ITS ---
Providers/Chief Complaint 2 Primary Care Provider: Karen Abernathy DO Chief Complaint: headache, weakness History of Present Illness July Young is a 68 year old female presenting with chief complaint of worsening of shortness of breath, who carries history of polycythemia, non o2 dependent COPD, Nicotine dependence. Patient is stating that Spiriva Diskus made her very uncomfortable she is attributing her symptoms to spiriva , she has not noticed chest pain, fever, nausea, vomiting or chest pain. She does not carry history of established coronary disease. She has been struggling with her symptoms for quite some time, recently her inhaler regimen was changed by the PCP. 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.never had syncope Review of Systems 2 Eyes: Denies: change in vision ENMT: Denies: throat pain Card: Reports: dyspnea on exertion; Denies: chest pain Resp: Denies: dyspnea Medications/Allergies Home Medications Medication Instructions Recorded Confirmed Last Taken Type ascorbic acid (vitamin C) 500 mg 500 mg PO DAILY 12/13/22 05/02/23 Unknown History tablet aspirin 81 mg tablet,delayed 81 mg PO .twice weekly 12/13/22 05/02/23 Unknown History release (Adult Low Dose Aspirin) calcium glucarate 500 mg capsule 2 tab-cap PO DAILY 12/13/22 05/02/23 Unknown History cholecalciferol (vitamin D3) 125 125 mcg PO DAILY 12/13/22 05/02/23 Unknown History mcg (5,000 unit) capsule magnesium oxide 400 mg PO DAILY 12/13/22 05/02/23 Unknown History multivitamin 1 tab PO DAILY 12/13/22 05/02/23 Unknown History potassium gluconate 600 mg (99 mg) 600 mg PO DAILY 12/13/22 05/02/23 Unknown History tablet vitamin B complex (B 1 tab PO DAILY 12/13/22 05/02/23 Unknown History Complex-Vitamin B12 tablet) albuterol sulfate 90 mcg/actuation 2 puff inhalation QID PRN 05/02/23 05/02/23 Unknown Rx aerosol inhaler shortness of breath or wheezing #8.5 grams fluticasone propionate 50 2 spray intranasal DAILY #16 grams 05/02/23 05/02/23 Unknown Rx mcg/actuation nasal spray,suspension (Flonase Allergy Relief) tiotropium bromide 18 mcg capsule 1 cap inhalation DAILY #60 05/02/23 05/02/23 Unknown Rx with inhalation device (Spiriva inhalations with HandiHaler) Allergies Allergy/AdvReac Type Severity Reaction Status Date / Time No Known Allergies Allergy Verified 05/02/23 13:22 PFSH Acute 2 PFSH: Medical History Salivary gland disturbance Surgery Scalp avulsion History of pulmonary embolism History of MRSA infection Surgical History History of right hip replacement H/O: hysterectomy History of appendectomy Family History Other CAD (coronary artery disease) Diabetes Social History Smoking and tobacco/nicotine status: current every day tobacco/nicotine user cigarettes Packs smoked per day: 1 [ Other cigarette details: <3 packs per weeks] Alcohol intake: never Substance/Drug Use: never Vitals/I&O/Wt Last Vital Signs Temp 98.4 F 05/05/23 16:36 Pulse 61 05/05/23 21:03 Resp 17 05/05/23 20:55 BP 174/75 05/05/23 16:36 Pulse Ox 91 05/05/23 20:55 O2 Del Method Room Air 05/05/23 20:55 O2 Flow Rate 4 05/05/23 20:55 Weight last 48 hrs Weight 90.718 kg Physical Exam 2 Narrative: Patient is standing at the bedside Currently on 4 L Awake and alert GCS 15 Pleasant cooperative I did not appreciate any crackles or wheezing Clinically looks dry Abdomen soft S1, S2 Pleasant and cooperative nonfocal neuro exam Data 05/05/23 17:26 05/05/23 17:26 A&P Assessment and plan (1) Nasal congestion: (2) COPD (chronic obstructive pulmonary disease): Qualifiers: COPD type: emphysema Emphysema type: panlobular Qualified Code(s): J 43.1 - Panlobular emphysema (3) PAC (premature atrial contraction): (4) Wheezing: (5) COPD exacerbation: (6) Bradycardia: Plan Acute COPD exacerbation Currently on 4 L Acute hypoxia Patient seems to have bronchiectasis with mucous plug We will request Mucomyst and chest physiotherapy and DuoNeb treatment We will give her ceftriaxone for COPD exacerbation No leukocytosis no active signs of pneumonia 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
[2023-05-05 23:17] LABS: Procalcitonin 0.03 ng/mL (0-0.5)
[2023-05-06] VITALS (12 sets, daily range): BP systolic 103–135; BP diastolic 62–80; PULSE 57–75; RESP 14–18; TEMP 36.4–36.8; O2SAT 90–95; BMI 33.3
[2023-05-06 00:55] LABS: Troponin 5 6HR 8.44 ng/L (0-10)
[2023-05-06 00:57] LABS: Troponin 5 6HR Delta -1.56 ng/L (0-12)
[2023-05-06 01:19] LABS: Thyroid Stimulating Hormone 1.67 uIU/mL (0.27-4.20)
[2023-05-06] MEDS: enoxaparin 40 mg/0.4 mL Syringe SUBCUT (02:14)
[2023-05-06] MEDS: ipratropium-albuterol 3 mL Neb INHALATION ×3 (02:37→20:53)
[2023-05-06 05:13] LABS: Basophils % 0.3 %; Hematocrit 57.1 % (36-47); Lymphocytes # 0.9 10^3/uL (0.8-4.8); Lymphocytes % 12.6 %; Mean Corpuscular HGB Conc 33.1 g/dL (30-55); Mean Corpuscular Hemoglobin 34.6 pg (27-33); Mean Corpuscular Volume 104.4 fl (85-98); Mean Platelet Volume 10.1 fL (7.4-10.4); Monocytes % 0.5 %; Neutrophils # 6.24 10^3/uL (1.8-7.7); Neutrophils % 85.8 %; Nucleated Red Blood Cells % 0 %; Platelet Count 193 10^3/cmm (157-399); Red Blood Count 5.47 10^6/uL (3.85-5.65); Red Cell Distribution Width 14.6 % (12.1-15.1); White Blood Count 7.28 10^3/uL (3.29-11.43)
[2023-05-06 05:41] LABS: Anion Gap 17.4 (5-19); Blood Urea Nitrogen 15 mg/dL (8-23); C Reactive Protein 3.2 mg/L (0.0-4.9); Calcium 9.4 mg/dL (8.5-10.5); Carbon Dioxide 28 mmol/L (22-29); Chloride 99 mmol/L (98-107); Glomerular Filtration Rate 71.5 mL/min (90-130); Glucose 175 mg/dL (65-115); Magnesium 2.2 mg/dL (1.7-2.3); Osmolality Calculated 295 mOsm/kg (285-295); Phosphorus 3.1 mg/dL (2.5-4.5); Potassium 4.4 mmol/L (3.5-5.1); Sodium 140 mmol/L (136-145)
[2023-05-06] MEDS: acetylcysteine 200 mg/mL SDV 4 mL INHALATION ×2 (08:03→20:54)
[2023-05-06] MEDS: magnesium oxide 400 mg tablet PO (09:14)
[2023-05-06] MEDS: sennosides-docusate Tablet 1 TAB PO (09:14)
[2023-05-06] MEDS: cefTRIAXone 1,000 MG in sodium chloride 0.9% (plus) 50 ML 100 MG IV (09:14)
[2023-05-06] MEDS: methylPREDNISolone sod succ 40 mg/mL INJ IVP ×2 (09:57→18:09)
--- NOTE | 2023-05-06 12:39 | USCV_ITS ---
July Young Age: 68 Gender: F : 1955 Exam Date: 05/06/2023 14:52 Ordering Phys: Chaparro Zacarias MD Technologist: Hayden Hamilton Exam Location: [facility] [place] Indication: sob BP: 113 / 65 HR: 63 Rhythm: Sinus Technical Quality: Adequate MEASUREMENTS (Male / Female) Normal Values 2D ECHO LVOT Diameter 2.1 cm LV Ejection Fraction MOD 2C 77.4 % LV Ejection Fraction 2C AL 77.2 % LA Diameter 3.6 cm LA Width 3.5 cm LA Height 4.7 cm RA Width 3.2 cm RA Height 5.5 cm Aorta at Sinotubular Diameter 2.5 cm IVC Diameter 1.8 cm M-MODE Aortic Annulus Diameter 2.5 cm LA Ao Ratio MM 1.5 MV E Point Septal Separation 0.2 cm DOPPLER AV Peak Velocity 201.3 cm/s LVOT Peak Velocity 132.0 cm/s AV Area Cont Eq vti 2.5 cm squared AV Area Cont Eq pk 2.2 cm squared MV Peak Velocity 120.0 cm/s MV Area PHT 3.1 cm squared Mitral E to A Ratio 1.0 MV E' Velocity 57.0 cm/s Mitral E to MV E' Ratio 9.9 Mitral E to LV E' Lateral Ratio 8.4 Mitral E to LV E' Septal Ratio 12.0 TR Peak Velocity 160.5 cm/s TR Peak Gradient 10.3 mmHg TR Mean Velocity 118.8 cm/s TR Mean Gradient 6.0 mmHg TR Velocity Time Integral 29.7 cm Right Atrial Pressure 3.0 mmHg Pulmonary Artery Systolic Pressu 13.3 mmHg PV Peak Velocity 105.7 cm/s RV Acceleration Time 0.1 s RV Ejection Time 0.3 s RV AcT/ET 0.3 FINDINGS Left Ventricle Normal left ventricular size, systolic function and wall thickness, with no regional wall motion abnormalities. Normal left ventricular wall thickness. Normal diastolic filling pattern. Right Ventricle The right ventricle is normal in size and function. Right Atrium The right atrium is normal in size. Left Atrium The left atrium is normal in size. Mitral Valve Structurally normal mitral valve without significant stenosis or prolapse. There is no mitral regurgitation. Aortic Valve Structurally normal aortic valve without significant sclerosis or stenosis. There is no aortic regurgitation. Tricuspid Valve Structurally normal tricuspid valve without significant stenosis. There is mild regurgitation. Pulmonary artery systolic pressure is normal. Pulmonic Valve Structurally normal pulmonic valve without significant stenosis. There is no pulmonic regurgitation. Pericardium Normal pericardium without effusion. Aorta Normal ascending aorta dimension. IVC The inferior vena cava appears normal. CONCLUSIONS Normal LV function. Nsignificant valvular disease. Chip Rasheed MD (Electronically Signed) Final Date: 07 May 2023 10:44 Amended: 22 May 2023 22:21 C
[2023-05-06 13:19] LABS: NT Pro B Type Natriuretic Pept 150 pg/mL (0-125)
--- NOTE | 2023-05-06 14:11 | P.PN_ITS ---
Subjective 2 Subjective: Patient was seen this morning, she did ambulate to the bathroom, she does report she smokes, she plans on quitting, denies any fevers, Vitals/I&O/Wt Last Vital Signs Temp 97.8 F 05/06/23 11:31 Pulse 62 05/06/23 11:31 Resp 18 05/06/23 11:31 BP 113/65 05/06/23 11:31 Pulse Ox 90 05/06/23 11:31 O2 Del Method Nasal Cannula 05/06/23 11:31 O2 Flow Rate 4 05/06/23 08:00 FiO2 45 05/06/23 02:45 05/05/23 05/06/23 05/06/23 22:59 06:59 14:59 Intake Total 140 / 140 1010 / 1010 Balance 140 / 140 1010 / 1010 Weight last 48 hrs Weight 98.968 kg Weight 90.718 kg Weight 90.718 kg Physical Exam 2 Const: COMMON NORMALS: no acute distress and patient oriented x3 Resp: COMMON NORMALS: normal respiratory effort, No retractions and No use of accessory muscles AUSCULTATION: wheezes Cardio: COMMON NORMALS: regular rate, regular rhythm, S1 normal heart sound present and S2 normal heart sound present RATE: regular rate RHYTHM: r egular rhythm HEART SOUNDS: S1 normal heart sound present and S2 normal heart sound present GI: COMMON NORMALS: Normal to inspection, nondistended, normoactive bowel sounds present and non-tender Extremity: COMMON NORMALS: no pedal edema Neuro: COMMON NORMALS: patient oriented x3 Psych: COMMON NORMALS: mental status grossly normal Data 05/06/23 04:57 05/06/23 04:57 A&P Assessment and plan (1) Nasal congestion: (2) COPD (chronic obstructive pulmonary disease): Qualifiers: COPD type: emphysema Emphysema type: panlobular Qualified Code(s): J 43.1 - Panlobular emphysema (3) PAC (premature atrial contraction): (4) Wheezing: (5) COPD exacerbation: (6) Bradycardia: Plan Acute COPD exacerbation Currently on 4 L Acute hypoxia Patient seems to have bronchiectasis with mucous plug We will request Mucomyst and chest physiotherapy and DuoNeb treatment We will give her ceftriaxone for COPD exacerbation No leukocytosis no active signs of pneumonia 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, secondary to chronic hypoxia, smoking, she tells me that when she checks her home O2 sats they are 85 without oxygen No history of stroke Bradycardia, patient is stating that he has history of tachyarrhythmia never had syncopal event, we will obtain a cardiac echo, she has nonpitting edema She has recently quit smoking She would benefit from pulmonary rehab Full code DVT prophylaxis added Attestations 2 Medical Necessity Statement*: Patient requires hospitalization due to COPD exacerbation, requiring inpatient monitoring, BiPAP therapy, steroid therapy, inpatient, greater than 2 midnights Diagnoses Nasal congestion R09.81 Panlobular emphysema J43.1 COPD type: emphysema Emphysema type: panlobular PAC (premature atrial contraction) I49.1 Wheezing R06.2 COPD exacerbation J44.1 Bradycardia R00.1
[2023-05-06] MEDS: budesonide 0.5 mg/2 mL Neb INHALATION (20:55)
[2023-05-07] VITALS (11 sets, daily range): BP systolic 92–111; BP diastolic 55–67; PULSE 55–71; RESP 14–20; TEMP 36.4–36.8; O2SAT 86–95
[2023-05-07] MEDS: enoxaparin 40 mg/0.4 mL Syringe SUBCUT (00:16)
[2023-05-07] MEDS: methylPREDNISolone sod succ 40 mg/mL INJ IVP ×2 (00:17→09:17)
[2023-05-07 02:49] LABS: Basophils % 0.1 %; Hematocrit 51.6 % (36-47); Lymphocytes % 9.3 %; Mean Corpuscular HGB Conc 32.8 g/dL (30-55); Mean Corpuscular Hemoglobin 33.9 pg (27-33); Mean Corpuscular Volume 103.6 fl (85-98); Mean Platelet Volume 10.3 fL (7.4-10.4); Monocytes # 0.5 10^3/uL (0.2-0.9); Monocytes % 4.6 %; Neutrophils # 9.16 10^3/uL (1.8-7.7); Neutrophils % 85.5 %; Nucleated Red Blood Cells % 0 %; Platelet Count 166 10^3/cmm (157-399); Red Blood Count 4.98 10^6/uL (3.85-5.65); Red Cell Distribution Width 14.5 % (12.1-15.1)
[2023-05-07 03:25] LABS: Alanine Aminotransferase 17 U/L (0-33); Albumin Level 3.9 g/dL (3.5-5.2); Alkaline Phosphatase 82 U/L (35-105); Anion Gap 11.4 (5-19); Aspartate Amino Transferase 18 U/L (0-32); Blood Urea Nitrogen 19 mg/dL (8-23); Calcium 9.1 mg/dL (8.5-10.5); Carbon Dioxide 34 mmol/L (22-29); Chloride 101 mmol/L (98-107); Globulin 2.8 g/dL (1.3-4.6); Glomerular Filtration Rate 83.5 mL/min (90-130); Glucose 171 mg/dL (65-115); Magnesium 2.4 mg/dL (1.7-2.3); Osmolality Calculated 300 mOsm/kg (285-295); Phosphorus 2.4 mg/dL (2.5-4.5); Potassium 4.4 mmol/L (3.5-5.1); Sodium 142 mmol/L (136-145); Total Bilirubin 0.2 mg/dL (0.15-1.2); Total Protein 6.7 g/dL (6.6-8.7)
[2023-05-07] MEDS: ipratropium-albuterol 3 mL Neb INHALATION ×3 (03:35→15:15)
[2023-05-07] MEDS: budesonide 0.5 mg/2 mL Neb INHALATION (08:13)
[2023-05-07] MEDS: acetylcysteine 200 mg/mL SDV 4 mL INHALATION ×2 (08:15→15:15)
[2023-05-07] MEDS: magnesium oxide 400 mg tablet PO (09:16)
[2023-05-07] MEDS: cefTRIAXone 1,000 MG in sodium chloride 0.9% (plus) 50 ML 100 MG IV (09:16)
[2023-05-07] MEDS: sennosides-docusate Tablet 1 TAB PO (09:16)
--- NOTE | 2023-05-07 11:35 | P.DS_ITS ---
Discharge Providers Date of Admission: 05/06/23 15:03 Date of Discharge: May 07, 2023 Attending Provider at Admission: Yunior Morales MD Attending Provider at Discharge: Chaparro Zacarias MD Primary Care Provider: Karen Abernathy DO Diagnoses at Discharge Discharge Diagnosis (1) Nasal congestion: Status: Acute (2) COPD (chronic obstructive pulmonary disease): Status: Acute Qualifiers: COPD type: emphysema Emphysema type: panlobular Qualified Code(s): J43.1 - Panlobular emphysema (3) PAC (premature atrial contraction): Status: Acute (4) Wheezing: Status: Acute (5) COPD exacerbation: Status: Acute (6) Bradycardia: Status: Acute Reason for Visit Reason for Visit: headache, weakness Hospital Course Hospital Course July Young is a 68 year old female presenting with chief complaint of worsening of shortness of breath, who carries history of polycythemia, non o2 dependent COPD, Nicotine dependence. Patient is stating that Spiriva Diskus made her very uncomfortable she is attributing her symptoms to spiriva , she has not noticed chest pain, fever, nausea, vomiting or chest pain. She does not carry history of established coronary disease. She has been struggling with her symptoms for quite some time, recently her inhaler regimen was changed by the PCP. 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 scan findings as below, needs to follow-up with pulmonary, discharged on 4 L nasal cannula 2. No evidence for pulmonary embolism. 3. Mucous plugging in multiple left lower lobe segmental bronchi. 4. Interval development of a left upper lobe nodule with an average measurement of 5 mm. For patients at low risk (minimal or absent history of smoking and of other known risk factors), no routine follow-up is indicated. For patients at high risk (history of smoking or of other known risk factors), consider optional CT Chest at 12 months. (Reference: [place]) 5. Stable left lower lobe nodule with an average measurement of [address] scan found 6. Serpiginous area of sclerosis in the left humeral head suspicious for avascular necrosis. -Has complaints of left shoulder pain, discharged with follow-up with Dr. Silva as outpatient Physical Exam Const: COMMON NORMALS: no acute distress and patient oriented x3 Resp: COMMON NORMALS: normal respiratory effort, No retractions, No use of accessory muscles and clear to auscultation bilaterally AUSCULTATION: clear to auscultation bilaterally Cardio: COMMON NORMALS: regular rate, regular rhythm, S1 normal heart sound present and S2 normal heart sound present RATE: regular rate RHYTHM: regular rhythm HEART SOUNDS: S1 normal heart sound present and S2 normal heart sound present GI: COMMON NORMALS: Normal to inspection, nondistended, normoactive bowel virgil nds present and non-tender Extremity: COMMON NORMALS: no pedal edema Neuro: COMMON NORMALS: patient oriented x3 Psych: COMMON NORMALS: mental status grossly normal Discharge Data Studies Completed and Pending Completed Studies During Hospitalization Category Date Time Status CT angio chest PE protcl [id number] Stat Cat Scan 05/05/23 20:04 Completed XR chest 1V portable [id number] Stat Exams 05/05/23 16:55 Completed CV. echo complete* [id number] Routine Ultrasound 05/06/23 12:39 Completed Pending at discharge Category Date Time Status Complete Blood Count w/Auto AM LABS Lab 05/08/23 04:00 Ordered Complete Blood Count w/Auto AM LABS Lab 05/09/23 04:00 Ordered Comprehensive Metabolic Panel AM LABS Lab 05/08/23 04:00 Ordered Comprehensive Metabolic Panel AM LABS Lab 05/09/23 04:00 Ordered Magnesium AM LABS Lab 05/08/23 04:00 Ordered Magnesium AM LABS Lab 05/09/23 04:00 Ordered Phosphorus AM LABS Lab 05/08/23 04:00 Ordered Phosphorus AM LABS Lab 05/09/23 04:00 Ordered Radiology Impressions Chest X-Ray 05/05/23 16:55 IMPRESSION: 1. Interval development of patchy atelectasis versus pneumonia in the left lingula and right and left lower lobes. Recommend followup chest imaging to insure resolution of these findings. 2. Incidental/nonacute findings are listed in the report. Chest CTA 05/05/23 20:04 IMPRESSION: 1. No evidence for aortic aneurysm or aortic dissection. 2. No evidence for pulmonary embolism. 3. Mucous plugging in multiple left lower lobe segmental bronchi. 4. Interval development of a left upper lobe nodule with an average measurement of 5 mm. For patients at low risk (minimal or absent history of smoking and of other known risk factors), no routine follow-up is indicated. For patients at high risk (history of smoking or of other known risk factors), consider optional CT Chest at 12 months. (Reference: Garrison) 5. Stable left lower lobe nodule with an average measurement of 5 mm. 6. Serpiginous area of sclerosis in the left humeral head suspicious for avascular necrosis. 7. Incidental/nonacute findings are listed in the report. REFERENCES: [facility] Greenfield, et al. Guidelines for Management of Incidental Pulmonary Nodules Detected on CT Images: From the Fleischner Society 2017. Radiology. 2017;284(1):228-243. Laboratory Results WBC 10.70 10^3/uL (3.29-11.43) 05/07/23 02:05 RBC 4.98 10^6/uL (3.85-5.65) 05/07/23 02:05 Hgb 16.90 g/dL (11.27-16.99) 05/07/23 02:05 Hct 51.6 % (36-47) H 05/07/23 02:05 MCV 103.6 fl (85-98) H 05/07/23 02:05 MCH 33.9 pg (27-33) H 05/07/23 02:05 MCHC 32.8 g/dL (30-55) 05/07/23 02:05 RDW 14.5 % (12.1-15.1) 05/07/23 02:05 Plt Count 166 10^3/cmm (157-399) 05/07/23 02:05 MPV 10.3 fL (7.4-10.4) 05/07/23 02:05 Neut % (Auto) 85.5 % 05/07/23 02:05 Lymph % (Auto) 9.3 % 05/07/23 02:05 [place] % (Auto) 4.6 % 05/07/23 02:05 Eos % (Auto) 0.0 % 05/07/23 02:05 Baso % (Auto) 0.1 % 05/07/23 02:05 Neut # (Auto) 9.16 10^3/uL (1.8-7.7) H 05/07/23 02:05 Lymph # (Auto) 1.0 10^3/uL (0.8-4.8) 05/07/23 02:05 [place] # (Auto) 0.5 10^3/uL (0.2-0.9) 05/07/23 02:05 Eos # (Auto) 0.0 10^3/uL (0.0-0.8) 05/07/23 02:05 Baso # (Auto) 0.0 10^3/uL (0.0-0.1) 05/07/23 02:05 Nucleated RBC % (auto) 0 % 05/07/23 02:05 Nucleated RBCs # 0.0 /100WBC 05/07/23 02:05 Specimen Type Arterial 05/05/23 20:57 Sample Site Brachial, right 05/05/23 20:57 ABG pH 7.35 (7.35-7.45) 05/05/23 20:57 ABG pCO2 59.9 mmHg (35-45) H 05/05/23 20:57 ABG pO2 68.1 mmHg (80.0-100.0) L 05/05/23 20:57 ABG HCO3 33.0 mmol/L (22-26) H 05/05/23 20:57 ABG O2 Saturation 95.5 05/05/23 20:57 ABG Base Excess 4.9 mmol/L (-2.0-2.0) H 05/05/23 20:57 Juan Test N/a 05/05/23 20:57 A-a O2 Gradient 1.1 mmHg (5-10) L 05/05/23 20:57 Hematocrit 54.9 % (37-47) H 05/05/23 20:57 Hgb O2 Saturation 85.4 % (95-100) L 05/05/23 20:57 Carboxyhemoglobin 10.5 %THgb (0.4-20.1) 05/05/23 20:57 Methemoglobin 0.1 % (0.4-1.5) L 05/05/23 20:57 Total Hemoglobin 17.9 g/dL (12-16) H 05/05/23 20:57 Sodium 138.0 mmol/L (131-143) 05/05/23 20:57 Potassium 4.6 mmol/L (3.5-5.0) 05/05/23 20:57 Glucose 96.0 mg/dL (70-115) 05/05/23 20:57 Ionized Calcium 1.2 mmol/L (1.1-1.4) 05/05/23 20:57 O2 Delivery Device Nc 05/05/23 20:57 O2 Liters/Min 4.0 % 05/05/23 20:57 Computer Graphic Designer ID Anonymous 05/05/23 20:57 Sodium 142 mmol/L (136-145) 05/07/23 02:05 Potassium 4.4 mmol/L (3.5-5.1) 05/07/23 02:05 Chloride 101 mmol/L (98-107) 05/07/23 02:05 Carbon Dioxide 34 mmol/L (22-29) H 05/07/23 02:05 Anion Gap 11.4 (5-19) 05/07/23 02:05 BUN 19 mg/dL (8-23) 05/07/23 02:05 Creatinine 0.7 mg/dL (0.5-0.9) 05/07/23 02:05 GFR Calculation 83.5 mL/min (90-130) L 05/07/23 02:05 Glucose 171 mg/dL (65-115) H 05/07/23 02:05 Calculated Osmolality 300 mOsm/kg (285-295) H 05/07/23 02:05 Calcium 9.1 mg/dL (8.5-10.5) 05/07/23 02:05 Phosphorus 2.4 mg/dL (2.5-4.5) L 05/07/23 02:05 Magnesium 2.4 mg/dL (1.7-2.3) H 05/07/23 02:05 Total Bilirubin 0.2 mg/dL (0.15-1.2) 05/07/23 02:05 AST 18 U/L (0-32) 05/07/23 02:05 ALT 17 U/L (0-33) 05/07/23 02:05 Alkaline Phosphatase 82 U/L (35-105) 05/07/23 02:05 Troponin T Baseline 10 ng/L (0-10) 05/05/23 17:26 Troponin T 120 Minute 10.61 ng/L (0-10) H 05/05/23 20:28 Delta Troponin T 0.61 ABS# (0-10) 05/05/23 20:28 Troponin T Hi Sens 6Hr 8.44 ng/L (0-10) 05/06/23 00:31 Troponin T Hi Sens 6Hr Delta -1.56 ng/L (0-12) L 05/06/23 00:31 C-Reactive Protein 3.2 mg/L (0.0-4.9) 05/06/23 04:57 NT-Pro-B Natriuret Pep 150 pg/mL (0-125) H 05/06/23 04:57 Total Protein 6.7 g/dL (6.6-8.7) 05/07/23 02:05 Albumin 3.9 g/dL (3.5-5.2) 05/07/23 02:05 Globulin 2.8 g/dL (1.3-4.6) 05/07/23 02:05 Procalcitonin 0.03 ng/mL (0-0.5) 05/05/23 20:28 TSH 1.67 uIU/mL (0.27-4.20) 05/06/23 00:31 Urine Color Yellow (Yellow) 05/05/23 20:53 Urine Appearance Clear (CLEAR) 05/05/23 20:53 Urine pH 6 (5-7) 05/05/23 20:53 Ur Specific [place] 1.005 (1.005-1.030) 05/05/23 20:53 Urine Protein Neg (Negative) 05/05/23 20:53 Urine Glucose (UA) Norm (Normal) 05/05/23 20:53 Urine Ketones Negative (Negative) 05/05/23 20:53 Urine Blood Neg (Negative) 05/05/23 20:53 Urine Nitrate Negative (Negative) 05/05/23 20:53 Urine Bilirubin Neg (Negative) 05/05/23 20:53 Urine Urobilinogen Neg mg/dL (Negative) 05/05/23 20:53 Ur Leukocyte Esterase Negative (Negative) 05/05/23 20:53 Influenza Type A Ag negative (Negative) 05/05/23 19:40 Influenza Type B Ag negative (Negative) 05/05/23 19:40 SARS-CoV-2 Ag (Rapid) negative (Negative) 05/05/23 19:40 Vitals Last Vital Signs Temp 97.6 F 05/07/23 11:25 Pulse 61 05/07/23 11:25 Resp 18 05/07/23 11:25 BP 111/67 05/07/23 11:25 Pulse Ox 91 05/07/23 11:25 O2 Del Method Nasal Cannula 05/07/23 11:25 O2 Flow Rate 4 05/07/23 08:15 FiO2 45 05/06/23 02:45 Discharge Plan Discharge Patient Disposition: Home Condition: Stable Prescriptions: New amoxicillin-pot clavulanate 875-125 mg tablet 1 tab PO BID 5 Days Qty: 10 0RF prednisone 10 mg tablet 10 mg PO DIRECTED Qty: 53 0RF Rx Instructions: 4 tabs daily for 5days, 3 tabs daily for 5 days, 2 tab for 5 days, 1 tab for 5 days, 0.5 tab for 5 days fluticasone propion-salmeterol [Advair Diskus] 250-50 mcg/dose blister with device 1 inh inhalation BID Qty: 60 0RF Continued fluticasone propionate [Flonase Allergy Relief] 50 mcg/actuation spray,suspension 2 spray intranasal DAILY Qty: 16 0RF Rx Instructions: administer into each nostril ascorbic acid (vitamin C) 500 mg tablet 500 mg PO DAILY cholecalciferol (vitamin D3) 125 mcg (5,000 unit) capsule 125 mcg PO DAILY vitamin B complex [B Complex-Vitamin B12] Tablet 1 tab PO DAILY magnesium oxide 400 mg magnesium capsule 400 mg PO DAILY potassium gluconate 600 mg (99 mg) tablet 600 mg PO DAILY multivitamin Tablet 1 tab PO DAILY calcium glucarate 500 mg capsule 2 tab-cap PO DAILY aspirin [Adult Low Dose Aspirin] 81 mg tablet,delayed release (DR/EC) 81 mg PO .THREE TIMES WEEKLY Vitamin B-6 50 mg Tablet 50 mg PO DAILY albuterol sulfate 90 mcg/actuation HFA aerosol inhaler 2 puff inhalation QID PRN (Reason: shortness of breath or wheezing) Qty: 8.5 0RF Discharge Orders: Discharge Order (Routine); Ordered 05/07/23 Ordered By: Chaparro Zacarias Referrals: DatarReg MD [Physician] - 2 weeks (We have notified your physician's clinic of the need for a follow-up appointment to be scheduled. If you have not heard from them within the next 2 business days, please call them directly. ) Karen Abernathy DO [Primary Care Provider] - (We have notified your physician's clinic of the need for a follow-up appointment to be scheduled. If you have not heard from them within the next 2 business days, please call them directly. ) Reno Silva DO [Physician] - 1 month (avascular left humaral fx) Discharge Diet: Cardiac Discharge Activity: Resume usual activity Patient Instructions: How to Stop Smoking (DC), Cigarette Smoking and Your Health (GEN) Activity Restrictions/Additional Instructions: - Please stop smoking, ? Take steroids and antibiotics as prescribed ? Use Advair as prescribed Discharge Attestations Time Spent in Discharge Care*: greater than 30 min Time Spent in Smoking Cessation: more than 10 minutes Extensive discussion with smoking cessation counseling, improve mortality with quitting smoking, oxygen therapy, stress triggers, relaxation techniques Quality Metrics Clinical Quality Measures [ No reported AMI, CVA or VTE this stay] Coding Level of Care Code 62299 Total time (in minutes) for Discharge: 45 Diagnoses Nasal congestion R09.81 Panlobular emphysema J43.1 COPD type: emphysema Emphysema type: panlobular PAC (premature atrial contraction) I49.1 Wheezing R06.2 COPD exacerbation J44.1 Bradycardia R00.1
== END 2023-05-07 17:27 | disposition home or self-care (01) ==
LOC: ER 18:52 → MEDSURG 05-06 01:00
PROVIDERS: Emergency Medicine; Admitting Provider Internal Medicine; Emergency Provider Physician Assistant; PCP Family Medicine; Visit Provider Family Medicine
DX: R09.81 Nasal congestion (principal); J43.1 Panlobular emphysema; R06.2 Wheezing; J44.1 Chronic obstructive pulmonary disease with (acute) exacerbation; R00.1 Bradycardia, unspecified; D75.1 Secondary polycythemia; Z87.891 Personal history of nicotine dependence; Z86.14 Personal history of Methicillin resistant Staphylococcus aureus infection; Z86.711 Personal history of pulmonary embolism
CPT/HCPCS: 36415; 36600; 71045; 71275; 80048; 80051; 80053; 81003; 82330; 82805; 83735; 83880; 84100; 84145; 84443; 84484; 85025; 86140; 87426; 87804; 93005; 93306; 94640; 94660; 94669; 94760; 96372; 96374; 99285; G0378; J0696; J1650; J2920; J2930; J7608; J7626; Q9967

== ENCOUNTER → 2023-05-19 07:52 | Outpatient (BNVA) | payer MEDICARE, SELFPAY | PROVIDERS: PCP Family Medicine; Visit Provider Internal Medicine Pulmonary Disease | DX: Z09 Encounter for follow-up examination after completed treatment for conditions other than malignant neoplasm (principal); J44.9 Chronic obstructive pulmonary disease, unspecified; J43.1 Panlobular emphysema; F17.219 Nicotine dependence, cigarettes, with unspecified nicotine-induced disorders; Z86.711 Personal history of pulmonary embolism; R91.1 Solitary pulmonary nodule; Z99.81 Dependence on supplemental oxygen | CPT/HCPCS: 99204 ==

== ENCOUNTER → 2023-06-08 10:26 | Outpatient (BNVA) | payer MEDICARE, SELFPAY | PROVIDERS: PCP Family Medicine; Visit Provider Physician Assistant | DX: M87.022 Idiopathic aseptic necrosis of left humerus; M19.012 Primary osteoarthritis, left shoulder | CPT/HCPCS: 73060; 99203 ==

== ENCOUNTER → 2023-06-30 08:10 | Outpatient (BNVA) | payer MEDICARE, SELFPAY | PROVIDERS: PCP Family Medicine; Visit Provider Internal Medicine Pulmonary Disease | DX: J43.1 Panlobular emphysema (principal); Z86.711 Personal history of pulmonary embolism; Z99.81 Dependence on supplemental oxygen; Z87.891 Personal history of nicotine dependence; R91.8 Other nonspecific abnormal finding of lung field | CPT/HCPCS: 99214 ==

== ENCOUNTER 2023-07-19 12:33 | Outpatient (CLI) | payer MEDICARE, SELFPAY ==
[2023-07-19 13:05] VITALS: PULSE 61; RESP 18; O2SAT 94
[2023-07-19] MEDS: albuterol 2.5 mg/3 mL Neb INHALATION (13:05)
[2023-07-19 13:10] VITALS: PULSE 61
== END 2023-07-19 12:34 | disposition home or self-care (01) ==
PROVIDERS: PCP Family Medicine; Visit Provider Internal Medicine Pulmonary Disease
DX: J44.9 Chronic obstructive pulmonary disease, unspecified (principal); Z72.0 Tobacco use; R94.2 Abnormal results of pulmonary function studies
CPT/HCPCS: 94060; 94618; 94726; 94729; J7613

== ENCOUNTER 2023-07-25 12:00 | Outpatient (CLI) | payer MEDICARE, SELFPAY | END 2023-07-25 12:01 | disposition home or self-care (01) | LOC: SLEEP 07-26 11:51 | PROVIDERS: PCP Family Medicine; Visit Provider Family Medicine | DX: G47.10 Hypersomnia, unspecified (principal); R06.83 Snoring | CPT/HCPCS: G0399 ==

== ENCOUNTER → 2023-08-08 12:34 | Outpatient (BNVA) | payer MEDICARE, SELFPAY | PROVIDERS: PCP Family Medicine; Visit Provider Internal Medicine Pulmonary Disease | DX: J43.1 Panlobular emphysema (principal); J44.9 Chronic obstructive pulmonary disease, unspecified; F17.219 Nicotine dependence, cigarettes, with unspecified nicotine-induced disorders; Z86.711 Personal history of pulmonary embolism; R91.1 Solitary pulmonary nodule; Z99.81 Dependence on supplemental oxygen | CPT/HCPCS: 99214 ==

== ENCOUNTER → 2023-09-06 14:03 | Outpatient (BNVA) | payer MEDICARE, SELFPAY | PROVIDERS: PCP Family Medicine; Visit Provider Internal Medicine Cardiovascular Disease | DX: I49.1 Atrial premature depolarization (principal); Z86.711 Personal history of pulmonary embolism; R00.2 Palpitations; J43.1 Panlobular emphysema; Z87.891 Personal history of nicotine dependence | CPT/HCPCS: 99214 ==

== ENCOUNTER → 2023-09-14 15:15 | Outpatient (BNVA) | payer MEDICARE, SELFPAY | PROVIDERS: PCP Family Medicine; Visit Provider Dermatology | DX: D48.5 Neoplasm of uncertain behavior of skin (principal) | CPT/HCPCS: 10060; 11900; 99204 ==

== ENCOUNTER 2023-10-02 13:19 | Emergency (ER) | payer MEDICARE, SELFPAY ==
[2023-10-02 13:44] VITALS: BP 144/80; PULSE 57; RESP 18; TEMP 36.7; O2SAT 96; BMI 36.9
== END 2023-10-02 14:26 | disposition home or self-care (01) ==
PROVIDERS: Emergency Provider Physician Assistant; PCP Family Medicine
DX: M71.342 Other bursal cyst, left hand (principal); L81.4 Other melanin hyperpigmentation; L72.0 Epidermal cyst
CPT/HCPCS: 10060; 99213

== ENCOUNTER 2023-10-02 15:43 | Outpatient (CLI) | payer MEDICARE, SELFPAY ==
--- NOTE | 2023-10-02 16:00 | USCV_ITS ---
YoungJuly oneill Age: 68 Gender: F : 1955 Exam Date: 10/02/2023 15:49 Ordering Phys: Chaparro Zacarias MD Technologist: LIZETT Exam Location: [facility] [place] Indication: LE PAIN and Swelling HISTORY: Lower extremity pain. Lower extremity swelling. PROCEDURES: Venous duplex imaging was performed in only the left lower extremity. The following venous structures were evaluated: common femoral vein, profunda vein, proximal portion of the greater saphenous vein, superficial femoral vein, and the popliteal vein. In addition, the posterior tibial and peroneal trunk were evaluated. Serial compression, augmentation maneuvers, and spectral Doppler flow evaluation were performed. FINDINGS: Normal 2-D Doppler and augmentation and compressibility throughout the lower extremity venous structures. Additional imaging through the proximal calf veins also reveals no thrombus. Limited evaluation of the greater saphenous vein is patent with no thrombus. CONCLUSIONS No DVT left lower extremity. Technically limited study. Dr. Desiree Parisi DO (Electronically Signed) Final Date: 02 October 2023 16:06 S
== END 2023-10-02 15:44 | disposition home or self-care (01) ==
LOC: RAD 15:44
PROVIDERS: PCP Family Medicine; Visit Provider Family Medicine
DX: M79.604 Pain in right leg (principal); Z86.711 Personal history of pulmonary embolism
CPT/HCPCS: 93971

== ENCOUNTER 2023-11-03 14:34 | Outpatient (CLI) | payer MEDICARE, SELFPAY ==
--- NOTE | 2023-11-03 15:15 | CTR_ITS ---
PROCEDURE INFORMATION: Exam: CT Chest Without Contrast; Diagnostic Exam date and time: 11/03/2023 2:43 PM Age: 68 years old Clinical indication: Condition or disease; Lung condition and disease; Pulmonary nodule, solitary; Additional info: 6 month f/u TECHNIQUE: Imaging protocol: Diagnostic computed tomography of the chest without contrast. Radiation optimization: All CT scans at this facility use at least one of these dose optimization techniques: automated exposure control; mA and/or kV adjustment per patient size (includes targeted exams where dose is matched to clinical indication); or iterative reconstruction. COMPARISON: 1. CT angio chest PE protcl [id number] 04/09/2018 12:[address] angio chest PE protcl [id number] 05/05/2023 8:14 PM RADIATION DOSE METRICS: Total DLP (mGy-cm): 623.75 FINDINGS: Lungs: There is a noncalcified pulmonary nodule in the left lower lobe visible on series 5, image 34 measuring 5 mm, stable since 04/09/2018. A sub solid nodule seen in the left upper lobe on the prior CT has resolved. There is subsegmental atelectasis in the right middle lobe and right lower lobe. There is inferior lingular segmental atelectasis. Pleural spaces: There is no pleural effusion or pneumothorax. Heart: There is no pericardial effusion. Heart size is normal. Coronary arteries: There is mild coronary artery calcification. Lymph nodes: There is no mediastinal or hilar lymphadenopathy. Vasculature: There is mild aortic atherosclerotic disease. Diaphragm: There is a small sliding-type hiatal hernia. Intraperitoneal space: Visible structures in the upper abdomen are unremarkable. Bones/joints: Irregular bone sclerosis is seen in the left humeral head on the tactical/mobile watch officer radiograph, suggesting possible avascular necrosis, corresponding to the finding on 05/05/2023. There is mild degenerative disease of the right shoulder. Mild convex right midthoracic scoliosis. No acute fracture. Soft tissues: The extrathoracic soft tissues are unremarkable. CT/CT chest con [id number] IMPRESSION: 1. Interval resolution of pulmonary nodule in the left upper lobe since 05/05/2023. Stable 5 mm left lower lobe pulmonary nodule since 04/09/2018. No further follow-up imaging is recommended. (Reference: [facility]) 2. Incidental findings above. REFERENCES: [place] Greenfield, et al. Guidelines for Management of Incidental Pulmonary Nodules Detected on CT Images: From the Fleischner Society 2017. Radiology. 2017;284(1):228-243.
== END 2023-11-03 14:35 | disposition home or self-care (01) ==
LOC: RAD 14:37
PROVIDERS: PCP Family Medicine; Visit Provider Internal Medicine Pulmonary Disease
DX: R91.1 Solitary pulmonary nodule (principal)
CPT/HCPCS: 71250

== ENCOUNTER → 2023-11-14 10:32 | Outpatient (BNVA) | payer MEDICARE, SELFPAY | PROVIDERS: PCP Family Medicine Adult Medicine; Visit Provider Family Medicine Adult Medicine | DX: R00.2 Palpitations (principal); E78.5 Hyperlipidemia, unspecified; R00.1 Bradycardia, unspecified; J43.1 Panlobular emphysema; F17.219 Nicotine dependence, cigarettes, with unspecified nicotine-induced disorders; E03.9 Hypothyroidism, unspecified | CPT/HCPCS: 80053; 80061; 84443; 85025 ==

== ENCOUNTER 2023-11-20 15:56 | Outpatient (CLI) | payer MEDICARE, SELFPAY ==
--- NOTE | 2023-11-20 16:10 | XRR_ITS ---
PROCEDURE INFORMATION: Exam: XR Abdomen Exam date and time: 11/20/2023 4:17 PM Age: 68 years old Clinical indication: Prior surgery; Surgery date: 6+ months; Surgery type: RT hip; Patient HX: Constipation for the last several days. PT was unable to remove heart monitor. TECHNIQUE: Imaging protocol: Radiologic exam of the abdomen. Views: 2 Views. Upright and supine views. COMPARISON: CT chest con [id number] 11/03/2023 2:43 PM FINDINGS: Gastrointestinal tract: No signs of small bowel obstruction. There is large amount of stool and gas within the colon. Intraperitoneal space: Normal. No free air. Bones/joints: Unremarkable for age. Right hip prosthesis. XR/XR abdomen 3V [id number] IMPRESSION: No acute findings.
== END 2023-11-20 15:57 | disposition home or self-care (01) ==
LOC: RAD 15:57
PROVIDERS: PCP Family Medicine Adult Medicine; Visit Provider Nurse Practitioner
DX: K59.00 Constipation, unspecified (principal)
CPT/HCPCS: 74021; 81000

== ENCOUNTER → 2023-12-28 13:07 | Outpatient (BNVA) | payer MEDICARE, SELFPAY | PROVIDERS: PCP Family Medicine Adult Medicine; Visit Provider Nurse Practitioner Family | DX: L57.0 Actinic keratosis (principal); L72.0 Epidermal cyst; M71.342 Other bursal cyst, left hand; D69.2 Other nonthrombocytopenic purpura | CPT/HCPCS: 17000; 99213 ==

== ENCOUNTER → 2024-01-10 13:21 | Outpatient (BNVA) | payer MEDICARE, SELFPAY | PROVIDERS: PCP Family Medicine Adult Medicine; Visit Provider Dermatology | DX: D48.5 Neoplasm of uncertain behavior of skin (principal); L72.0 Epidermal cyst; M71.342 Other bursal cyst, left hand; L81.4 Other melanin hyperpigmentation | CPT/HCPCS: 11403; 12032; 99213 ==

== ENCOUNTER → 2024-02-06 09:48 | Outpatient (BNVA) | payer MEDICARE, SELFPAY | PROVIDERS: PCP Family Medicine Adult Medicine; Visit Provider Student in an Organized Health Care Education/Training Program | DX: M67.442 Ganglion, left hand (principal) | CPT/HCPCS: 73130; 99203 ==

== ENCOUNTER → 2024-03-07 13:56 | Outpatient (BNVA) | payer MEDICARE, SELFPAY | PROVIDERS: PCP Family Medicine Adult Medicine; Visit Provider Internal Medicine Cardiovascular Disease | DX: I49.3 Ventricular premature depolarization (principal); E78.2 Mixed hyperlipidemia; Z86.711 Personal history of pulmonary embolism; I10 Essential (primary) hypertension; Z87.891 Personal history of nicotine dependence; R07.9 Chest pain, unspecified; R01.1 Cardiac murmur, unspecified | CPT/HCPCS: 99214 ==

== ENCOUNTER → 2024-03-12 10:32 | Outpatient (BNVA) | payer MEDICARE, SELFPAY | PROVIDERS: PCP Family Medicine Adult Medicine; Referring Provider Family Medicine Adult Medicine; Visit Provider Student in an Organized Health Care Education/Training Program | DX: Z12.11 Encounter for screening for malignant neoplasm of colon (principal) | CPT/HCPCS: 99024; 99204 ==

== ENCOUNTER → 2024-03-14 11:05 | Outpatient (BNVA) | payer MEDICARE, SELFPAY | PROVIDERS: PCP Family Medicine Adult Medicine; Visit Provider Family Medicine | DX: R00.1 Bradycardia, unspecified (principal); K59.00 Constipation, unspecified | CPT/HCPCS: 84439; 84443; 84481 ==

== ENCOUNTER 2024-03-20 11:10 | Outpatient (CLI) | payer MEDICARE, SELFPAY ==
--- NOTE | 2024-03-20 11:11 | MM_ITS ---
WS: [id number] SCREENING DIGITAL BREAST TOMOSYNTHESIS MAMMOGRAM WITH CAD HISTORY: Screening COMPARISON: 03/10/2023, 11/12/2021, Bilateral CC and MLO with tomosynthesis and synthetic mammography submitted. Computer aided detection analyzed. Breast composition: There are scattered areas of fibroglandular density. Developing 5 mm slightly lob ulated asymmetry in the medial anterior LEFT breast seen best on the CC projection. Not definitely se en on the lateral projection. This asymmetry has become more prominent since 2021. No additional susp icious calcification or mass. MM/MM [facility] tomosynthesis [id number] IMPRESSION: BI-RADS: 0 - Incomplete: Need additional imaging evaluation. FOLLOW UP: Need Additional Imaging LEFT breast: Spot compression views (CC and MLO). True ML. Ultrasound to follow if abnormality persists.
== END 2024-03-20 11:11 | disposition home or self-care (01) ==
LOC: RAD 11:10
PROVIDERS: PCP Family Medicine Adult Medicine; Visit Provider Family Medicine Adult Medicine
DX: Z12.31 Encounter for screening mammogram for malignant neoplasm of breast (principal); R92.323 Mammographic fibroglandular density, bilateral breasts; N64.89 Other specified disorders of breast
CPT/HCPCS: 77063; 77067

== ENCOUNTER 2024-04-22 10:31 | Outpatient (CLI) | payer MEDICARE, SELFPAY ==
--- NOTE | 2024-04-22 14:00 | MM_ITS ---
WS: [id number] ADDITIONAL VIEWS LEFT MAMMOGRAM with tomosynthesis. LEFT BREAST ULTRASOUND HISTORY: L breast mass on mammo COMPARISON: 03/20/2024, 03/10/2023, 11/12/2021 LEFT MAMMOGRAM: Spot compression views and true ML with tomosynthesis and sympathetic mammography. Ovoid, slightly high density mass persists measuring 4 x 2 x 3 mm in the medial LEFT breast just belo w the nipple line. This is in the anterior breast and is best seen on the CC projection. No additiona l suspicious masses. LEFT BREAST ULTRASOUND 2-D and color Doppler imaging submitted. There is a very tiny hypoechoic thick walled cyst measuring 4 x 3 x 1 mm at 7:00, 1 cm from the nippl e. This could represent the mammographic finding. This is very small and hard to characterize. Benign in appearance. No increased vascularity. MM/MM diag LT tomosynthesis [id number] IMPRESSION: BI-RADS: 2- Benign FOLLOW UP: 1 Year Follow-up Mammographic abnormality is probably a very tiny complex cyst.
--- NOTE | 2024-04-22 14:30 | US_ITS ---
WS: [id number] ADDITIONAL VIEWS LEFT MAMMOGRAM with tomosynthesis. LEFT BREAST ULTRASOUND HISTORY: L breast mass on mammo COMPARISON: 03/20/2024, 03/10/2023, 11/12/2021 LEFT MAMMOGRAM: Spot compression views and true ML with tomosynthesis and sympathetic mammography. Ovoid, slightly high density mass persists measuring 4 x 2 x 3 mm in the medial LEFT breast just belo w the nipple line. This is in the anterior breast and is best seen on the CC projection. No additiona l suspicious masses. LEFT BREAST ULTRASOUND 2-D and color Doppler imaging submitted. There is a very tiny hypoechoic thick walled cyst measuring 4 x 3 x 1 mm at 7:00, 1 cm from the nippl e. This could represent the mammographic finding. This is very small and hard to characterize. Benign in appearance. No increased vascularity. US/US breast LT complete [id number] IMPRESSION: BI-RADS: 2- Benign FOLLOW UP: 1 Year Follow-up Mammographic abnormality is probably a very tiny complex cyst.
== END 2024-04-22 10:32 | disposition home or self-care (01) ==
LOC: RAD 10:31
PROVIDERS: PCP Family Medicine Adult Medicine; Visit Provider Family Medicine
DX: N60.02 Solitary cyst of left breast (principal); E03.8 Other specified hypothyroidism
CPT/HCPCS: 76641; 77061; 84439; 84443; 84481; G0279

== ENCOUNTER 2024-04-29 09:18 | Day surgery (SDC) | payer MEDICARE, SELFPAY ==
[2024-04-29 09:35] VITALS: BP 106/48; PULSE 59; RESP 20; TEMP 36.5; O2SAT 96
[2024-04-29 09:36] VITALS: BMI 36.2
[2024-04-29] MEDS: sodium chloride 0.9% 1,000 ML 30 ML IV (09:46)
--- NOTE | 2024-04-29 10:00 | P.ANESASSM_ITS ---
Pre-Anesthetic Assessment Height/Weight: Height 1.65 m Weight 98.883 kg Temp Pulse Resp BP Pulse Ox O2 Del Method O2 Flow Rate 97.7 F 59 L 20 H 106/48 96 Nasal Cannula 3 04/29/24 09:35 04/29/24 09:35 04/29/24 09:35 04/29/24 09:35 04/29/24 09:35 04/29/24 09:35 04/29/24 09:35 Preop Diagnosis: screening Operation Date: 04/29/24 10:30 Proposed Procedures p Colonoscopy- 64612,G0121,Z12.11(Not Applicable) - Nomi Cooper MD Familial anesthetic complications: none Last intake: Intake Last Liquid Date 04/28/24 Last Liquid Time 21:00 Last Solid Date 04/27/24 Last Solid Time 21:00 Social previous smoker- quit in 2022 Exam alert and oriented x 3 Pulmonary Chronic Obstructive Pulmonary Disease and Exertional Dyspnea wear 3L NC at home as needed and at night; Hx of PE CV/HEM Coronary Artery Disease, Hypertension and Palpitations dizziness and pt c/o some chest discomfort with activity and states 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 She states these cardiac symptoms are new. None reported Hepatic None reported GI None reported Metabolic Hyperlipidemia Musc/skel None reported Neuropsych None reported Anesthetic Plan ASA status: 4 Other: Pts cardiac symptoms discussed with Dr Mauro and Dr. Cooper. Procedure cancelled for today due to cardiac symptoms. Pt instructed to follow up after seeing cardiology and echo and to go to the ER if she experiences chest pain. Lengthy discussion with patient regarding reasoning for rescheduling and she is agreeable. Risk of > 500 ml blood loss (7ml/kg in children): No Medications/Allergies Home Medications Medication Instructions Recorded Confirmed Last Taken Type ascorbic acid (vitamin C) 500 mg 500 mg PO DAILY 12/13/22 04/24/24 04/26/24 History tablet calcium glucarate 500 mg capsule 2 tab-cap PO DAILY 12/13/22 04/24/24 04/26/24 History multivitamin 1 tab PO DAILY 12/13/22 04/24/24 04/26/24 History vitamin B complex (B 1 tab PO DAILY 12/13/22 04/24/24 04/26/24 History Complex-Vitamin B12 tablet) omega-3 fatty acids-fish oil 300 1 cap PO DAILY 02/06/24 04/26/24 04/26/24 History mg-500 mg capsule (Fish Oil) potassium gluconate 595 mg (99 mg) 99 mg PO DAILY 02/06/24 04/24/24 04/26/24 History tablet magnesium L-lactate 84 mg 84 mg PO BID 30 days #60 tabs 03/07/24 04/24/24 04/26/24 Rx tablet,extended release (Magtab) 10L Oxygen Concentrator #1 ea 03/14/24 04/22/24 Unknown Rx meclizine 12.5 mg tablet 12.5 mg PO TID PRN dizziness #30 04/22/24 04/24/24 04/28/24 Rx tabs levothyroxine 75 mcg tablet 75 mcg PO DAILY #60 tabs 04/23/24 04/24/24 04/28/24 Rx tiotropium 2.5 mcg-olodaterol 2.5 2 puff inhalation QAM 04/26/24 04/26/24 04/29/24 08:00 History mcg/actuation mist for inhalation (Stiolto Respimat) Allergies Allergy/AdvReac Type Severity Reaction Status Date / Time No Known Drug Allergies Allergy Unknown Verified 04/24/24 12:39 [facility] Anesthesia Medical History Mass of left breast on mammogram Adult onset hypothyroidism Constipation CAD (coronary artery disease) Elevated blood pressure reading in office with diagnosis of hypertension Hypertension Former smoker, stopped smoking in distant past Quit date 05/24/2023 with a history of 2 ppd X 52 years Lung nodule seen on imaging study Resolved on 10/06/[address] with other nodules remain stable since 2018 and no further follow-up recommended. Right fibular fracture Hyperlipidemia Mixed incontinence urge and stress Salivary gland disturbance Surgery History of pulmonary embolism Surgical History History of right hip replacement H/O: hysterectomy History of appendectomy Family History Other CAD (coronary artery disease) Diabetes Social History Smoking and tobacco/nicotine status: never used tobacco/nicotine Quit status (tobacco/nicotine): has quit using Year quit tobacco: 05/2023 Former quit date comment: 2 ppd X 52 years Alcohol intake: never Substance/Drug Use: never Data Anesthesia Cardiac Studies: Echocardiogram 05/06/23 Cardiac Event Monitor 11/14/23 Holter Monitor 10/25/21
== END 2024-04-29 11:59 | disposition home or self-care (01) ==
LOC: GILAB 09:19
PROVIDERS: PCP Family Medicine Adult Medicine; Referring Provider Family Medicine; Visit Provider Student in an Organized Health Care Education/Training Program
PROC: 0DJD8ZZ Inspection of Lower Intestinal Tract, Via Natural or Artificial Opening Endoscopic (ICD-10-PCS; CPT 45378; principal; 2024-04-29 10:30)
DX: Z01.818 Encounter for other preprocedural examination (principal)
CPT/HCPCS: J7030

== ENCOUNTER 2024-05-15 14:43 | Outpatient (CLI) | payer MEDICARE, SELFPAY ==
--- NOTE | 2024-05-15 15:00 | USCV_ITS ---
July Young Age: 69 Gender: F : 1955 Exam Date: 05/15/2024 14:54 Ordering Phys: Georgette Goldberg MD ([email or web address]) Technologist: [place] [facility] [place]ication: sob BP: 134 / 72 HR: 61 Rhythm: Sinus Technical Quality: Adequate MEASUREMENTS (Male / Female) Normal Values 2D ECHO LVOT Diameter 2.1 cm LV Ejection Fraction MOD 4C 58.0 % LV Ejection Fraction MOD 2C 71.8 % LV Ejection Fraction 2C AL 72.3 % LA Diameter 4.3 cm RA Systolic Volume 4C AL 34.4 ml RA Systolic Volume 4C MOD 33.7 ml LA Sys Volume AL 58.9 cm cubed LA Sys Volume Index AL 27.1 cm cubed/m squared Aorta at Sinotubular Diameter 2.6 cm IVC Diameter 2.5 cm M-MODE LA Ao Ratio MM 1.9 AV Cusp Separation MM 1.7 cm DOPPLER AV Peak Velocity 232.0 cm/s LVOT Peak Velocity 125.0 cm/s AV Area Cont Eq vti 2.4 cm squared AV Area Cont Eq pk 1.9 cm squared MV Peak Velocity 122.0 cm/s MV Area PHT 2.2 cm squared Mitral E to A Ratio 0.9 TR Peak Velocity 184.0 cm/s TR Peak Gradient 13.5 mmHg TR Mean Velocity 114.0 cm/s TR Mean Gradient 6.2 mmHg TR Velocity Time Integral 41.2 cm TV Peak E Velocity 59.0 cm/s PV Peak Velocity 125.0 cm/s FINDINGS Left Ventricle Normal left ventricular size and systolic function, EF 65%.no regional wall motion abnormalities. Mild left ventricular hypertrophy. Grade I/IV diastolic dysfunction (abnormal relaxation filling pattern), normal to mildly elevated filling pressures. Right Ventricle The right ventricle is normal in size and function. Right Atrium The right atrium is normal in size. Left Atrium The left atrium is normal in size. Mitral Valve No gross abnormalities noted Aortic Valve Aortic valve sclerosis. Peak velocity of 2.32 m/s Tricuspid Valve No gross abnormalities noted. Pulmonic Valve Pulmonic valve not well visualized. Pericardium Normal pericardium without effusion. Aorta Normal ascending aorta dimension. IVC The inferior vena cava appears normal. CONCLUSIONS Normal left ventricular size and systolic function, EF 65%.no regional wall motion abnormalities. Mild left ventricular hypertrophy. Grade I/IV diastolic dysfunction (abnormal relaxation filling pattern), normal to mildly elevated filling pressures. Aortic valve sclerosis. Peak velocity of 2.32 m/s. There is no pericardial effusion. There are no intracardiac masses. Compared to the study from 05/06/2023., There may to be significant change Dr Georgette Goldberg MD [facility] (Electronically Signed) Final Date: 19 May 2024 20:08 S
== END 2024-05-15 14:44 | disposition home or self-care (01) ==
LOC: RAD 14:44
PROVIDERS: PCP Family Medicine; Visit Provider Internal Medicine Cardiovascular Disease
DX: R06.09 Other forms of dyspnea (principal); I50.30 Unspecified diastolic (congestive) heart failure; I70.0 Atherosclerosis of aorta
CPT/HCPCS: 93306

== ENCOUNTER 2024-06-11 07:32 | Day surgery (SDC) | payer OTHER, SELFPAY ==
[2024-06-11 07:48] VITALS: BP 129/60; PULSE 56; RESP 18; TEMP 36.1; O2SAT 94; BMI 33.3
[2024-06-11] MEDS: sodium chloride 0.9% 500 ML 15 ML IV (08:01)
--- NOTE | 2024-06-11 08:08 | ANES.PREANE2 ---
Pre-Anesthetic Assessment Height/Weight: Height 1.65 m Weight 90.718 kg Temp Pulse Resp BP Pulse Ox O2 Del Method 97 F L 56 L 18 129/60 94 Room Air 06/11/24 07:48 06/11/24 07:48 06/11/24 07:48 06/11/24 07:48 06/11/24 07:48 06/11/24 07:48 Operation Date: 06/11/24 08:30 Proposed Procedures p Colonoscopy 65280, G0121, Z12.11(Not Applicable) - Nomi Cooper MD Familial anesthetic complications: none Was Beta Jorge taken within 24 hours: N/A Was Clonidine taken within 24 hours: N/A Last intake: Intake Last Liquid Date 06/10/24 Last Liquid Time 23:30 Last Solid Date 06/09/24 Last Solid Time 20:00 Social No alcohol and No tobacco Exam alert, oriented x 3, clear to auscultation bilaterally and regular rate & rhythm Airway Submandibular: within normal limits Cervical ROM: within normal limits Mallampati: Class II Dentition: false Pulmonary Chronic Obstructive Pulmonary Disease Home O2 CV/HEM Arrythmia, Coronary Artery Disease and Hypertension Metabolic Morbid Obesity and Thyroid Disease Anesthetic Plan ASA status: 3 Anesthesia: MAC Medications/Allergies Home Medications Medication Instructions Recorded Confirmed Last Taken Type ascorbic acid (vitamin C) 500 mg 500 mg PO DAILY 12/13/22 06/06/24 06/10/24 History tablet calcium glucarate 500 mg capsule 2 tab-cap PO DAILY 12/13/22 06/06/24 06/10/24 History multivitamin 1 tab PO DAILY 12/13/22 06/06/24 06/10/24 History vitamin B complex (B 1 tab PO DAILY 12/13/22 06/06/24 06/10/24 History Complex-Vitamin B12 tablet) omega-3 fatty acids-fish oil 300 1 cap PO DAILY 02/06/24 06/06/24 06/10/24 History mg-500 mg capsule (Fish Oil) potassium gluconate 595 mg (99 mg) 99 mg PO DAILY 02/06/24 06/06/24 06/10/24 History tablet magnesium L-lactate 84 mg 84 mg PO BID 30 days #60 tabs 03/07/24 06/06/24 06/10/24 Rx tablet,extended release (Magtab) 10L Oxygen Concentrator #1 ea 03/14/24 04/22/24 06/10/24 Rx levothyroxine 75 mcg tablet 75 mcg PO DAILY #60 tabs 04/23/24 06/11/24 06/11/24 Rx tiotropium 2.5 mcg-olodaterol 2.5 2 puff inhalation QAM 04/26/24 06/11/24 06/11/24 History mcg/actuation mist for inhalation (Stiolto Respimat) Allergies Allergy/AdvReac Type Severity Reaction Status Date / Time No Known Drug Allergies Allergy Unknown Verified 04/24/24 12:39 Current Medications Generic Name Dose Route Start Last Admin Trade Name Freq PRN Reason Stop Dose Admin Sodium Chloride 500 mls @ 15 mls/hr 06/11/24 07:36 06/11/24 08:01 Sodium Chloride 0.9% IV 06/12/24 07:35 15 mls/hr .Q24H PRN Administration COLONOSCOPY FLUIDS PFSH Anesthesia Medical History Mass of left breast on mammogram Adult onset hypothyroidism Constipation CAD (coronary artery disease) Elevated blood pressure reading in office with diagnosis of hypertension Hypertension Former smoker, stopped smoking in distant past Quit date 05/24/2023 with a history of 2 ppd X 52 years Lung nodule seen on imaging study Resolved on 10/06/[address] with other nodules remain stable since 2018 and no further follow-up recommended. Right fibular fracture Hyperlipidemia Mixed incontinence urge and stress Salivary gland disturbance Surgery History of pulmonary embolism Surgical History History of right hip replacement H/O: hysterectomy History of appendectomy Family History Other CAD (coronary artery disease) Diabetes Social History Smoking and tobacco/nicotine status: never used tobacco/nicotine Quit status (tobacco/nicotine): has quit using Year quit tobacco: 05/2023 Former quit date comment: 2 ppd X 52 years Alcohol intake: never Substance/Drug Use: never Data Anesthesia Cardiac Studies: Echocardiogram 05/15/24 Cardiac Event Monitor 11/14/23 Holter Monitor 10/25/21
--- NOTE | 2024-06-11 08:42 | W.PM.OPSFHP ---
Same Day Surgery H&P Indication for Procedure/HPI DATE OF PROCEDURE: June 11, 2024 CHIEF COMPLAINT/INDICATIONFOR SURGICAL PROCEDURE: changes in bowel habits PREOP DIAGNOSIS: changes in bowel habits PLANNED PROCEDURE: Operation Date: 06/11/24 08:30 Proposed Procedures p Colonoscopy 68034, G0121, Z12.11(Not Applicable) - Nomi Cooper MD Medications/Allergies* Home Medications Medication Instructions Recorded Confirmed Type ascorbic acid (vitamin C) 500 mg 500 mg PO DAILY 12/13/22 06/06/24 History tablet calcium glucarate 500 mg capsule 2 tab-cap PO DAILY 12/13/22 06/06/24 History multivitamin 1 tab PO DAILY 12/13/22 06/06/24 History vitamin B complex (B 1 tab PO DAILY 12/13/22 06/06/24 History Complex-Vitamin B12 tablet) omega-3 fatty acids-fish oil 300 1 cap PO DAILY 02/06/24 06/06/24 History mg-500 mg capsule (Fish Oil) potassium gluconate 595 mg (99 mg) 99 mg PO DAILY 02/06/24 06/06/24 History tablet tiotropium 2.5 mcg-olodaterol 2.5 2 puff inhalation QAM 04/26/24 06/11/24 History mcg/actuation mist for inhalation (Stiolto Respimat) Allergies/Adverse Reactions Allergy/AdvReac Type Severity Reaction Status Date / Time No Known Drug Allergies Allergy Unknown Verified 04/24/24 12:39 Current Medications: Generic Name Dose Route Start Last Admin Trade Name Freq PRN Reason Stop Dose Admin Sodium Chloride 500 mls @ 15 mls/hr 06/11/24 07:36 06/11/24 08:01 Sodium Chloride 0.9% IV 06/12/24 07:35 15 mls/hr .Q24H PRN Administration COLONOSCOPY FLUIDS Pertinent History/Comorbid Conditions* Medical History (Updated 03/26/24 @ 07:50 by Ivone Perdomo MD) Mass of left breast on mammogram Adult onset hypothyroidism Constipation CAD (coronary artery disease) Elevated blood pressure reading in office with diagnosis of hypertension Hypertension Former smoker, stopped smoking in distant past Quit date 05/24/2023 with a history of 2 ppd X 52 years Lung nodule seen on imaging study Resolved on 10/06/[address] with other nodules remain stable since 2018 and no further follow-up recommended. Right fibular fracture Hyperlipidemia Mixed incontinence urge and stress Salivary gland disturbance Surgery History of pulmonary embolism Surgical History (Updated 04/15/20 @ 13:53 by Karen Abernathy DO) History of right hip replacement H/O: hysterectomy History of appendectomy Family History (Updated 04/15/20 @ 13:43 by Hailee Hopkins LPN) Diabetes CAD (coronary artery disease) Social History Smoking and tobacco/nicotine status: never used tobacco/nicotine Quit status (tobacco/nicotine): has quit using Year quit tobacco: 05/2023 Former quit date comment: 2 ppd X 52 years Alcohol intake: never Substance/Drug Use: never Pertinent Exam Findings alert, oriented x 3, clear to auscultation bilaterally, regular rate & rhythm and procedure specific exam findings abdomen soft, nt, nd Recommendations Surgery/Procedure today Coding Level of Care Code Acute Code for Chg Fwd
[2024-06-11 09:39] VITALS: BP 127/67; PULSE 64; RESP 18; TEMP 36.2; O2SAT 95
[2024-06-11 10:05] VITALS: BP 107/87; PULSE 69; RESP 18; O2SAT 96
--- NOTE | 2024-06-11 13:51 | ANE.PACU2 ---
Inpatient post-anesthesia follow up: Airway intact: Yes Vital signs: Temperature 97.2 F Pulse Rate 69 Respiratory Rate 18 Blood Pressure 107/87 Pulse Oximetry 96 Oxygen Delivery Me thod Nasal Cannula Oxygen Flow Rate 3 Fraction of Inspir ed Oxygen Hydration adequate: Yes Nausea and vomiting: No Pain level: 2 Mental status: Baseline
== END 2024-06-11 10:42 | disposition home or self-care (01) ==
PROVIDERS: PCP Family Medicine; Visit Provider Student in an Organized Health Care Education/Training Program
PROC: 0DJD8ZZ Inspection of Lower Intestinal Tract, Via Natural or Artificial Opening Endoscopic (ICD-10-PCS; CPT 45378; principal; 2024-06-11 08:30)
DX: R19.4 Change in bowel habit (principal); D12.3 Benign neoplasm of transverse colon; J44.9 Chronic obstructive pulmonary disease, unspecified; Z99.81 Dependence on supplemental oxygen; I25.10 Atherosclerotic heart disease of native coronary artery without angina pectoris; I10 Essential (primary) hypertension; E66.01 Morbid (severe) obesity due to excess calories; E03.9 Hypothyroidism, unspecified; Z87.891 Personal history of nicotine dependence; E78.5 Hyperlipidemia, unspecified
CPT/HCPCS: 45380; 88305; J2405; J2704; J7040

== ENCOUNTER → 2024-06-20 13:22 | Outpatient (BNVA) | payer OTHER, SELFPAY | PROVIDERS: PCP Family Medicine; Visit Provider Family Medicine | DX: E03.8 Other specified hypothyroidism (principal); R00.1 Bradycardia, unspecified | CPT/HCPCS: 84439; 84443 ==

== ENCOUNTER → 2024-09-18 14:53 | Outpatient (BNVA) | payer MEDICARE, SELFPAY | PROVIDERS: PCP Family Medicine; Visit Provider Internal Medicine Cardiovascular Disease | DX: I49.3 Ventricular premature depolarization (principal); I35.0 Nonrheumatic aortic (valve) stenosis; I10 Essential (primary) hypertension; E78.2 Mixed hyperlipidemia; Z86.711 Personal history of pulmonary embolism; Z79.82 Long term (current) use of aspirin; Z87.891 Personal history of nicotine dependence | CPT/HCPCS: 99214 ==

== ENCOUNTER → 2024-10-08 15:10 | Outpatient (BNVA) | payer MEDICARE, SELFPAY | PROVIDERS: PCP Family Medicine; Visit Provider Nurse Practitioner Family | DX: L72.0 Epidermal cyst (principal); M71.30 Other bursal cyst, unspecified site; L81.4 Other melanin hyperpigmentation | CPT/HCPCS: 99213 ==

== ENCOUNTER → 2024-10-23 13:01 | Outpatient (BNVA) | payer MEDICARE, SELFPAY | PROVIDERS: PCP Family Medicine; Visit Provider Dermatology | DX: L72.0 Epidermal cyst (principal); R20.8 Other disturbances of skin sensation; R23.8 Other skin changes; L53.8 Other specified erythematous conditions | CPT/HCPCS: 11403; 13101 ==

== ENCOUNTER → 2024-11-11 10:07 | Outpatient (BNVA) | payer MEDICARE, SELFPAY | PROVIDERS: PCP Family Medicine; Visit Provider Nurse Practitioner Family | DX: L73.9 Follicular disorder, unspecified (principal); R21 Rash and other nonspecific skin eruption | CPT/HCPCS: 99214 ==

== ENCOUNTER → 2025-01-27 08:05 | Outpatient (BNVA) | payer MEDICARE, SELFPAY | PROVIDERS: PCP Family Medicine; Visit Provider Nurse Practitioner Family | DX: L73.9 Follicular disorder, unspecified (principal); L30.8 Other specified dermatitis | CPT/HCPCS: 99214 ==

== ENCOUNTER → 2025-03-10 14:41 | Outpatient (BNVA) | payer MEDICARE, SELFPAY | PROVIDERS: PCP Family Medicine; Visit Provider Internal Medicine Cardiovascular Disease | DX: I49.3 Ventricular premature depolarization (principal); I35.9 Nonrheumatic aortic valve disorder, unspecified; E78.5 Hyperlipidemia, unspecified; I10 Essential (primary) hypertension; R07.9 Chest pain, unspecified; Z86.711 Personal history of pulmonary embolism; Z79.82 Long term (current) use of aspirin; Z87.891 Personal history of nicotine dependence | CPT/HCPCS: 99214 ==

== ENCOUNTER → 2025-03-24 13:00 | Outpatient (BNVA) | payer MEDICARE, SELFPAY | PROVIDERS: PCP Family Medicine; Visit Provider Internal Medicine | DX: J44.9 Chronic obstructive pulmonary disease, unspecified (principal); R91.8 Other nonspecific abnormal finding of lung field; Z79.82 Long term (current) use of aspirin; Z99.81 Dependence on supplemental oxygen; Z87.891 Personal history of nicotine dependence; Z86.711 Personal history of pulmonary embolism | CPT/HCPCS: 99214; Q3014 ==

== ENCOUNTER → 2025-03-31 10:08 | Outpatient (BNVA) | payer MEDICARE, SELFPAY | PROVIDERS: PCP Family Medicine; Visit Provider Nurse Practitioner Family | DX: L73.9 Follicular disorder, unspecified (principal); L30.8 Other specified dermatitis; L81.4 Other melanin hyperpigmentation; D22.39 Melanocytic nevi of other parts of face; L57.8 Other skin changes due to chronic exposure to nonionizing radiation | CPT/HCPCS: 99214 ==

== ENCOUNTER 2025-04-01 13:21 | Outpatient (CLI) | payer MEDICARE, SELFPAY ==
--- NOTE | 2025-04-01 14:30 | CTR_ITS ---
PROCEDURE INFORMATION: Exam: CT Chest Without Contrast; Diagnostic Exam date and time: 04/01/2025 2:16 PM Age: 70 years old Clinical indication: Condition or disease; Lung condition and disease; Pulmonary nodule, solitary; Additional info: Pulmonary nodules TECHNIQUE: Imaging protocol: Diagnostic computed tomography of the chest without contrast. Radiation optimization: All CT scans at this facility use at least one of these dose optimization techniques: automated exposure control; mA and/or kV adjustment per patient size (includes targeted exams where dose is matched to clinical indication); or iterative reconstruction. COMPARISON: CT chest wo con [id number] 11/03/2023 2:[address] 04/09/2018 RADIATION DOSE METRICS: Total DLP (mGy-cm): 550.15 FINDINGS: Lungs: Subsegmental atelectasis in the lingula is stable. Stable 5 mm pulmonary nodule in the left lower lobe. A few tiny scattered nodules in the right lung are stable as well. Pleural spaces: Unremarkable. No pneumothorax. No pleural effusion. Heart: Unremarkable. No cardiomegaly. No pericardial effusion. Lymph nodes: Unremarkable. No enlarged lymph nodes. Vasculature: Unremarkable. No aortic aneurysm. Kidneys: Focal scarring in the left kidney. Bones/joints: Unremarkable. No acute fracture. Soft tissues: Unremarkable. CT/CT chest wo con [id number] IMPRESSION: Stable pulmonary nodules bilaterally measuring up to 5 mm in the left lower lobe. This nodule is unchanged since 2018.
== END 2025-04-01 13:22 | disposition home or self-care (01) ==
LOC: RAD 13:22
PROVIDERS: PCP Family Medicine; Visit Provider Internal Medicine
DX: J44.9 Chronic obstructive pulmonary disease, unspecified (principal); J98.11 Atelectasis; R91.8 Other nonspecific abnormal finding of lung field; N28.89 Other specified disorders of kidney and ureter
CPT/HCPCS: 71250

== ENCOUNTER 2025-04-30 13:27 | Outpatient (CLI) | payer MEDICARE, SELFPAY ==
--- NOTE | 2025-04-30 13:35 | MM_ITS ---
WS: [id number] BILATERAL 3D TOMOSYNTHESIS DIGITAL SCREENING MAMMOGRAPHY WITH CAD CLINICAL INFORMATION: SCREENING HISTORY: Screening mammogram. No current complaints. COMPARISON: 2023 TECHNIQUE: Bilateral CC and MLO views. FINDINGS: Scattered fibroglandular densities bilaterally. No suspicious focal mass, asymmetry, calcifications, or architectural distortion. No evidence of malignancy. MM/MM scr BI tomosynthesis [id number] IMPRESSION: DENSITY: There are scattered areas of fibroglandular density. BI-RADS: 1 - Negative. FOLLOW UP: 1 Year Follow-up Recommend return to annual screening mammography.
== END 2025-04-30 13:28 | disposition home or self-care (01) ==
LOC: RAD 13:28
PROVIDERS: PCP Family Medicine; Visit Provider Family Medicine
DX: Z12.31 Encounter for screening mammogram for malignant neoplasm of breast (principal); R92.323 Mammographic fibroglandular density, bilateral breasts
CPT/HCPCS: 77063; 77067

== ENCOUNTER → 2025-05-08 14:33 | Outpatient (BNVA) | payer MEDICARE, SELFPAY | PROVIDERS: PCP Family Medicine; Visit Provider Internal Medicine | DX: J44.9 Chronic obstructive pulmonary disease, unspecified (principal); R91.8 Other nonspecific abnormal finding of lung field; Z12.2 Encounter for screening for malignant neoplasm of respiratory organs; Z99.81 Dependence on supplemental oxygen; Z79.82 Long term (current) use of aspirin; Z86.711 Personal history of pulmonary embolism; Z87.891 Personal history of nicotine dependence | CPT/HCPCS: 99214; Q3014 ==

== ENCOUNTER → 2025-06-03 11:49 | Outpatient (BNVA) | payer MEDICARE, SELFPAY | PROVIDERS: PCP Family Medicine; Visit Provider Family Medicine | DX: E78.2 Mixed hyperlipidemia (principal); E03.8 Other specified hypothyroidism; I25.10 Atherosclerotic heart disease of native coronary artery without angina pectoris; R00.1 Bradycardia, unspecified | CPT/HCPCS: 80053; 80061; 84439; 84443; 85025 ==